=== PATIENT | male | born 2000 | race Caucasian/White ===

== ENCOUNTER 2023-05-04 17:18 | Emergency (ER) | payer BC, SELFPAY ==
[2023-05-04] VITALS (35 sets, daily range): BP systolic 132–163; BP diastolic 69–99; PULSE 65–95; RESP 10–24; TEMP 36.3; O2SAT 96–100
--- NOTE | 2023-05-04 17:34 | ED.GENADUL_ITS ---
Discharge Plan Disposition Patient Disposition: Home Condition: Stable Discharge Details Clinical Impression: Seizure disorder Primary Care Provider: [facility] ED Provider: Nghia Sage Home Meds and New Rx's Prescriptions: New diazepam [Diastat] 2.5 mg kit 5 mg ND Q6H PRN (Reason: epilepsy) Qty: 1 0RF Continued lamotrigine [Lamictal] 100 mg tablet 100 mg PO BID Discharge Instructions Instructions: Recurrent Seizures in Adults (ED) Additional Instructions: You were seen in the emergency department for your seizure activity, unwitnessed, he states that you are adherent to your Lamictal therapy and we have sent a level out. Please call back in the coming days to see if this lab has returned. Otherwise continue your Lamictal as directed by her neurologist. Did provide you 3 tablets of Ativan if you feel an aura of seizure coming on you may take 1 of these tablets, please present to hospital immediately. I discussed with you and your family in regards to having an emergency dose of Diastat in the home if you are ever found down in status epilepticus and this was sent to your pharmacy. Please try to get in touch with your neurologist about your breakthrough seizures and I will try to expedite your follow-up and getting your care transferred to [facility] neurology. Referrals: [facility] [Provider Group] Medical Decision Making This dictation utilizes [id number] dictation software and may contain unedited grammatical errors. 22 y/o M presents to ED today with a chief complaint of seizure activity in the setting of epilepsy and on Lamictal, adherent to therapy. Onset and characteristics include unknown duration seizures Tuesday & Tuesday, took one extra tablet lamictal after seizure activity at-home Tuesday, denies ETOH/drug use, endorses poor sleep habits. Patients' medical history: epilepsy, BPD. Family and social history: history of ETOH use, hospitalization [facility] 07/05 for etoh intox. Pertinent exam findings / vital signs include neuro intact, benign cardiopulmonary status, benign abdomen, question alcohol withdrawal monitor tongue fasciculations but this was an isolated finding. Differential / pathologies of concern include breakthrough seizures, epilepsy, withdrawal. Diagnostic studies of: -CBC, CMP, Lipase, UA, Utox, CK, Lamotrigine level (send-out) -No leukocytosis, CBC benign -CMP benign -trace blood in the urine -U tox negative -CK neg Interventions of: -IV Ativan 1mg, patient had not had seizure activity today- given one dose short-acting to prevent any seizure activity here in ED. ED Course: Patient with epilepsy who was either discontinued or self discontinued Keppra in the remote past has been having likely breakthrough seizures, states he is at home and his mom is at work he has these periods where he comes to sort of confused, states he was conscious the whole time but does not really remember what he was doing and likely was having seizures. States he has never been in status epilepticus before, I did securities counselor him on following up with his neurologist for restarting Keppra, I did refer the note to our neurology as they are trying to transfer care to our neurology service. Counseled patient on having a rescue dose of Diastat in the home, discussed this with the patient's mother and they wish to have this in the home in case the patient ever is found in status epilepticus. Findings not consistent with status epilepticus, current seizure activity, the patient likely had breakthrough seizures in the setting of epilepsy. Needs to follow-up outpatient, lamotrigine level is pending Disposition of Seizure Disorder. Patient verbalized understanding of the plan and return to ED criteria and engaged in shared decision making. Medical Records Medical records reviewed: Yes I reviewed the patient's medical records. Lab Data Labs: Laboratory Tests Range/Units 05/04/23 05/04/23 18:05 19:58 WBC (4.4-10.8) 10^3/uL 7.20 RBC (4.36-5.78) 10^6/uL 4.95 Hgb (13.5-17.5) g/dL 15.5 Hct (40.0-50.0) % 45.1 MCV (80-95) fL 91 MCH (27.0-33.0) pg 31.3 MCHC (32.0-36.0) % 34.4 RDW (11.8-14.1) % 12.9 Plt Count (130-400) 10^3/uL 254 MPV (8.0-11.0) fL 9.0 Immature Gran % 0.3 Neutrophils % 62.3 Lymphocytes % 22.9 Monocytes % 7.4 Eosinophils % 6.1 Basophils % 1.0 Nucleated RBC % (0.0-0.3) % 0.0 Absolute Neutrophils (1.2-6.7) 10^3/uL 4.49 Absolute Lymphocytes (1.2-3.4) 10^3/uL 1.65 Absolute Monocytes (0.1-0.8) 10^3/uL 0.53 Absolute Eosinophils (0.0-0.7) 10^3/uL 0.44 Absolute Basophils (0.0-0.2) 10^3/uL 0.07 Sodium (136-145) mmol/L 140 Potassium (3.5-5.1) mmol/L 4.2 Chloride (98-107) mmol/L 103 Carbon Dioxide (21.0-32.0) mmol/L 32.8 H Anion Gap (3-11) mmol/L 4.2 BUN (7-18) mg/dL 6 L Creatinine (0.70-1.30) mg/dL 1.1 Est GFR (CKD-EPI 2020) (mL/min/1.73m2) 97.95 Glucose (74-106) mg/dL 93 Calcium (8.5-10.1) mg/dL 9.9 Magnesium (1.8-2.4) mg/dL 2.1 Total Bilirubin (0.2-1.0) mg/dL 0.9 AST (15-37) U/L 19 ALT (16-63) U/L 33 Alkaline Phosphatase (46-116) U/L 64 Creatine Kinase (39-308) U/L 63 Total Protein (6.4-8.2) g/dL 7.5 Albumin (3.4-5.0) g/dL 4.3 Lipase (16-77) U/L 29 Urine Color (Yellow) Yellow Urine Clarity (Clear) Clear Urine pH (5-8) 7.5 Ur Specific [place] (1.005-1.025) 1.020 Urine Protein (Negative) mg/dL Negative Urine Ketones (Negative) mg/dL Negative Urine Blood (Negative) Trace-intact H Urine Nitrite (Negative) Negative Urine Bilirubin (Negative) Negative Urine Urobilinogen (Up to 0.2) mg/dL 0.2 Ur Leukocyte Esterase (Negative) Negative Urine RBC (0-2) HPF 0-2 Urine WBC (0-5) HPF Negative Ur Epithelial Cells (Negative) HPF Negative Urine Crystals (Negative) HPF Negative Urine Bacteria (Negative) HPF Rare Urine Casts (Negative) LPF Negative Urine Mucus (Negative) Negative Ur Culture Indicated? No Urine Glucose (Negative) mg/dL Negative Urine Opiates Screen (Negative) Negative Urine Methadone Screen (Negative) Negative Ur Barbiturates Screen (Negative) Negative Ur Tricyclics Screen (Negative) Negative Ur Amphetamines Screen (Negative) Negative U Benzodiazepines Scrn (Negative) Negative Urine Cocaine Screen (Negative) Negative Ur THC Screen (Negative) Negative Ethyl Alcohol (<10) mg/dL < 3.0 HPI General Date/Time Provider Initiated Documentation: 05/04/23 17:34 . HPI Narrative: 22 year-old male presents to ED today by POV/ambulating with his mother with a chief complaint of seizure activity, likely at home- was on the phone with a friend who said he was confused, has known epilepsy- sees Neuro at [facility], but his Neurologist is retiring from the practice with onset unknown today. Patient states he may have had a breakthrough seizure on Tuesday and Tuesday as well. Has history of Keppra use, but discontinued, currently on Lamictal- took a double dose last night after his seizure Tuesday. Quality descr ibed as unsure if he has partial or focal seizures, no radiation to fever, recent drug or alcohol use, denies recent illness, states he sometimes doesn't get the best sleep. Severity is described as 0/10 currently. Palliating factors include nothing specific. Provoking factors include nothing specific. Events leading up to the incident/Associated Symptoms: Patient is trying to transfer care to [facility] Neurology. Patient not anticoagulated. Related Data Home Medications Medication Instructions Recorded Confirmed diazepam 2.5 mg rectal kit 5 mg ND Q6H PRN epilepsy 2 doses 05/04/23 (Diastat) #1 ea lamotrigine 100 mg tablet 100 mg PO BID 05/04/23 05/04/23 (Lamictal) Previous Rx's Medication Instructions Recorded diazepam 2.5 mg rectal kit 5 mg ND Q6H PRN epilepsy 2 doses 05/04/23 (Diastat) #1 ea Allergies Allergy/AdvReac Type Severity Reaction Status Date / Time No Known Allergies Allergy Unverified 05/04/23 17:34 General Stated Complaint: Seizure LOBO: 3 Review of Systems All systems reviewed & are unremarkable except as noted in HPI and below PFSH All Active Problems (Updated 05/04/23 @ 20:41 by ABEL Huff) Seizure disorder (Chronic) Social History Smoking/Tobacco Use Status: Never Smoking risk assessment performed?: Yes Alcohol Intake: former Drug use: Never Substance use type: does not use Housing: apartment Do you feel safe at home: Yes Do you feel safe in your relationship?: Yes Exam Narrative Exam Narrative: GENERAL APPEARANCE: Well-nourished, non-toxic, awake and alert, atraumatic, no acute distress. SKIN: Warm, pink, dry, intact, without rashes/lesions/ulcerations. HEAD: Normocephalic, atraumatic, normal hair distribution for gender/age. EYES: Pupils PERRLA, EOMs intact without nystagmus, normal conjunctiva, no exudates on lids/lashes. ENT: Nares patent, no circumoral cyanosis, no facial swelling, minor tongue fasciculations NECK: Supple, trachea midline, painless cervical ROM. LUNGS/CHEST: Lungs CTA bilaterally- no rhonchi/rales/wheezes diffusely, non- labored respirations, normal A/P diameter, symmetrical expansion, no chest wall deformity HEART (CV/PV): Regular rate and rhythm without murmur, no peripheral edema, no JVD. ABDOMEN: Soft, non-distended, no guarding, no tenderness. MSK: Normal ROM, no swelling/deformity to bilateral UEs or LEs, moving all extremities without weakness, no cyanosis, spine midline without tenderness, normal curvature. NEURO: Mental Status AAOx4 - alert to person, place, time, events No facial droop, no forehead involvement, no pronator drift, no dysmetria with cerebellar testing Motor: No focal weakness - strength 5/5 in bilateral UEs and LEs, proximal and distal, symmetric. Sensory: sensation intact to light touch globally. Gait normal: patient ambulated without ataxia into ED room. PSYCH: euthymic, cooperative, pleasant, appropriate speech- flat affect Course Vital Signs Vital signs: Vital Signs Temperature 36.3 C L 05/04/23 17:25 Pulse 68 05/04/23 17:25 Respiratory Rate 16 05/04/23 17:25 Blood Pressure 161/99 H 05/04/23 17:25 Pulse Oximetry 99 05/04/23 17:25 Temperature 36.3 C L 05/04/23 17:25 Temperature Source Skin 11/22/23 17:25 Pulse 68 05/04/23 17:25 Respiratory Rate 16 05/04/23 17:25 Respiratory Effort Normal 05/04/23 17:28 Blood Pressure 161/99 H 05/04/23 17:25 Blood Pressure Position Sitting 05/04/23 17:25 Pulse Oximetry 99 05/04/23 17:25 Oxygen Delivery Method Room Air 05/04/23 17:25 Oxygen Flow Rate 0 05/04/23 17:25 Pain Level 4 05/04/23 17:25
--- OUTSIDE RECORDS SUMMARY | 2023-05-04 17:43 | XMS_ITS | Continuity of Care Document ---
Author Name Unknown Organization [facility] Address [address] [place] [address] Care Team Providers Care Battery Repairer Name Role Phone David York DO Primary Care Physician Encounter [facility] [id number] Date(s): 03/04/23 - 03/04/23 [facility] [address] [place] [address]- Encounter Diagnosis Globus sensation(Discharge Diagnosis) - 03/04/23 Crushing injury of larynx(Discharge Diagnosis) - 03/04/23 Change in voice(Discharge Diagnosis) - 03/04/23 Discharge Disposition: Home or Self Care Attending Physician: Patricia Hernandez PA-C Admitting Physician: Patricia Hernandez PA-C Allergies, Adverse Reactions, Alerts No Known Medication Allergies Substance Reaction Severity Status Nuts 1 Anaphylactic reaction Severe Active 1cashews and pistachios Assessment and Plan Future Appointments Future Scheduled Tests Radiology* MRI Shoulder w/o Contrast Right 08/09/22 Medications lamoTRIgine 100 mg oral tablet 100 mg = 1 tab, Oral, BID, Twice a day, # 60 tab, 1 Refill(s), [id number], 188, cm, 10/01/22 13:59:00 EDT, Height/Length Dosing, 75, kg, 10/01/22 13:59:00 EDT, Weight Dosing Start Date: 02/25/23 Stop Date: 04/26/23 Status: Ordered OLANZapine 5 mg oral tablet 5 mg = 1 tab, Oral, every night at bedtime, For Bipolar disorder, # 90 tab, 3 Refill(s), Pharmacy: [id number] Start Date: 08/25/22 Status: Ordered propranolol 60 mg oral capsule, extended release 60 mg = 1 cap, Oral, every night at bedtime, For Panic disorder/anxiety take at bedtime, # 90 cap, 3 Refill(s), Pharmacy: [id number] Start Date: 08/25/22 Status: Ordered traZODone 100 mg oral tablet 100 mg =, Oral, every night at bedtime, Take at bedtime for sleep and anxiety, # 90 tab, 3 Refill(s), Pharmacy: [id number] Start Date: 08/25/22 Status: Ordered Problem List Condition Confirmation Course Effective Dates Status Health Status Informant Allergy to food Confirmed Active Anxiety Confirmed Active Anxiety Confirmed Active Bipolar disorder Confirmed Active Bipolar affective disorder in remission Confirmed Active Cluster headache 1 Confirmed Active Complex partial seizure 2 Confirmed Active Counseling requested Confirmed Active Depression Confirmed Active EEG abnormal Confirmed Active Electroencephalogram abnormal Confirmed Active Gastritis Confirmed Active H/O: gastric ulcer Confirmed Active Insomnia Confirmed Active Instability of right shoulder joint Confirmed Active Panic disorder Confirmed Active Patellofemoral syndrome of left knee Confirmed Active Rectal bleeding Confirmed Active Seizure Confirmed Active Shoulder pain Confirmed Active 1associated with seizures 2as reported by pt per dr husain Procedures Procedure Date Related Diagnosis Body Site Status Arthroscopy Shoulder (Right) 1 10/07/22 Completed Surgery 2 Completed Surgery 3 Completed 1auto-populated from documented surgical case 2meniscus repair 3left shoulder surgery Vital Signs Most recent to oldest [Reference Range]: 1 Temperature Tympanic [36.6-37.9 Deg C] 3 6.4 Deg C *LOW* (03/04/23 5:27 PM) Peripheral Pulse Rate [60-100 bpm] 96 bp m (03/04/23 5:27 PM) Respiratory Rate [12-24 br/min] 16 br/mi n (03/04/23 5:27 PM) Blood Pressure [90-140/60-90 mmHg] 141/8 2mmHg *HI* (03/04/23 5:27 PM) Weight 70 kg (03/04/23 5:27 PM) Weight Measured (lbs) 154.323 lb (03/04/23 5:27 PM) Height 187 cm (03/04/23 5:27 PM) Height/Length Measured (inches) 73.62 in (03/04/23 5:27 PM) BSA Measured 1.91 m2 (03/04/23 5:27 PM) Body Mass Index 20.02 kg/m2 (03/04/23 5:27 PM) Social History Social History Type Response Tobacco Never tobacco user T obacco Use:. Sex Implantable Device List Procedure Provider Procedure Date Device Type Site Arthroscopy, shoulder, diagnostic, with or without synovial biopsy (separate procedure) Ortiz Brandt MD 10/07/22 Non Biological Should er R Device Identifier Serial Number Lot or Batch Number Manufacturing Date Expiration Date Distinct Identification Code MRI Safety Implantable Status Assigning Authority Unknown Unknown [id number] Unknown 04/11/25 Unknown Unknown Active Un known Unknown Unknown [id number] Unknown 05/15/24 Unknown Unknown Active Unkn own Physician Outpatient Note * Patricia Hernandez PA-C: PERFORM Event Display: Office Clinic Note Physician Authored Date: [id number] OMEGA MUSA :2000 Age:22 years Sex:Male Visit Date:03/04/2023 Primary Care Physician: David York DO Chief Complaint Pt reports 1 mo ago him and his brother were wrestling, c/o throat pain and a higher pitched voice since then. History of Present Illness Patient is a 22-year-old male who presents to the urgent care office today with 1 month history of??right-sided anterior neck pain, crepitus,??foreign body sensation, and change in voice??after his brother head??kneeled on his throat??while wrestling.?? Initially, he delayed being evaluated as he thought the symptoms would resolve on their own however??there has been no significant improvement.??No difficulty or painful swallowing??or breathing.?? No recent imaging. Physical Exam Vitals & Measurements T:??36.4?C ??(Tympanic)?? HR:??96??(Peripheral)?? RR:??16?? BP:??141/82?? SpO2:??100%?? HT:??187??cm?? WT:??70??kg?? BMI:??20.02?? BSA:??1.91?? Well-appearing, no acute distress, pleasant, reliable historian. No obvious injury of the head or neck. Trachea is midline. Minimal reproducible tenderness along right side larynx, without crepitus. Posterior pharynx is normal. Assessment/Plan 1.??Crushing injury of larynx??S17.0XXA Radiograph of??soft tissue neck was negative for any obvious fracture. I discussed risk benefits of outpatient CT??neck versus??ED evaluation.?? Patient elected for ED evaluation this evening. ??He was transferred in stable condition.?? Nonbillable visit. 2.??Globus sensation??R09.89 3.??Change in voice??R49.9 Problem List/Past Medical History Ongoing Allergy to food Anxiety Anxiety Bipolar affective disorder in remission Bipolar disorder Cluster headache Complex partial seizure Counseling requested Depression EEG abnormal Electroencephalogram abnormal Gastritis H/O: gastric ulcer Insomnia Instability of right shoulder joint Panic disorder Patellofemoral syndrome of left knee Rectal bleeding Seizure Shoulder pain Historical No qualifying data Procedure/Surgical History ???Arthroscopy Shoulder (Right) (10/07/2022)???Surgery???Surgery Medications lamoTRIgine 100 mg oral tablet, 100 mg= 1 tab, Oral, BID, 1 refills OLANZapine 5 mg oral tablet, 5 mg= 1 tab, Oral, every night at bedtime, 3 refills propranolol 60 mg oral capsule, extended release, 60 mg= 1 cap, Oral, every night at bedtime, 3 refills traZODone 100 mg oral tablet, 100 mg, Oral, every night at bedtime, 3 refills Allergies Nuts??(Anaphylactic reaction) No Known Medication Allergies Social History Alcohol Past Electronic Cigarette/Vaping Electronic Cigarette Use: Never. Substance Use Never Tobacco Never tobacco user Tobacco Use:. Electronically Signed on 03/04/23 07:48 PM Patricia Hernandez PA-C Patient Care team information Care Team Personnel Name: David York DO Position: Physician Member Role: Primary Care Physician Address: Address: [address] [place] [id number] [place] Care Team Related Persons Name: GRACE FAIR
--- OUTSIDE RECORDS SUMMARY | 2023-05-04 17:43 | XMS_ITS | Continuity of Care Document ---
Author Name Unknown Organization [facility] Address [address] [place] [address] Care Team Providers Care Interactive Media Designer Name Role Phone David York DO Primary Care Physician Encounter LTTL_CT FIN NBR [id number] Date(s): 03/04/23 - 03/04/[address] [id number] Encounter Diagnosis Odynophagia(Discharge Diagnosis) - 03/04/23 Discharge Disposition: Home or Self Care Attending Physician: Lino Jalloh MD Admitting Physician: Lino Jalloh MD Allergies, Adverse Reactions, Alerts No Known Medication Allergies Substance Reaction Severity Status Nuts 1 Anaphylactic reaction Severe Active 1cashews and pistachios Assessment and Plan Future Appointments Future Scheduled Tests Radiology* MRI Shoulder w/o Contrast Right 08/09/22 Functional Status 03/04/23 Other exposure to Infectious Disease Non e Medications lamoTRIgine 100 mg oral tablet 100 mg = 1 tab, Oral, BID, Twice a day, # 60 tab, 1 Refill(s), Pharmacy: [id number], 188, cm, 10/01/22 13:59:00 EDT, Height/Length Dosing, 75, kg, 10/01/22 13:59:00 EDT, Weight Dosing Start Date: 02/25/23 Stop Date: 04/26/23 Status: Ordered OLANZapine 5 mg oral tablet 5 mg = 1 tab, Oral, every night at bedtime, For Bipolar disorder, # 90 tab, 3 Refill(s), [id number] Start Date: 08/25/22 Status: Ordered propranolol 60 mg oral capsule, extended release 60 mg = 1 cap, Oral, every night at bedtime, For Panic disorder/anxiety take at bedtime, # 90 cap, 3 Refill(s), [id number] Start Date: 08/25/22 Status: Ordered traZODone 100 mg oral tablet 100 mg =, Oral, every night at bedtime, Take at bedtime for sleep and anxiety, # 90 tab, 3 Refill(s), [facility] Start Date: 08/25/22 Status: Ordered Mental Status 03/04/23 Eye Opening Response David Spontaneous ly Best Verbal Response David Oriented Best Motor Response David Obeys comman ds David Coma Score 15 Problem List Condition Confirmation Course Effective Dates [...] surgical case 2meniscus repair 3left shoulder surgery Results Radiology Reports * Exam Date Time Procedure Performing Provider Status 03/04/23 7:[address] Neck Soft Tissue w/o Contrast Shirlene Wallace; Auth (Verified) Notes: (CT Neck Soft Tissue w/o Contrast) Reason For Exam: throat pain after injury to neck CT Neck Soft Tissue w/o Contrast PROCEDURE INFORMATION: Exam: CT Neck Without Contrast Exam date and time: 03/04/2023 7:30 PM Age: 22 years old Clinical indication: Throat pain; Additional info: Throat pain after injury to neck TECHNIQUE: Imaging protocol: Computed tomography of the neck without contrast. Radiation optimization: All CT scans at this facility use at least one of these dose optimization techniques: automated exposure control; mA and/or kV adjustment per patient size (includes targeted exams where dose is matched to clinical indication); or iterative reconstruction. REPORTING DATA: Count of CT and Cardiac NM exams in prior 12 months: This patient has received 0 known CTs and 0 known cardiac nuclear medicine studies in the 12 months prior to the current study. COMPARISON: CR XR NECK SOFT TISSUE 03/04/2023 5:59 PM FINDINGS: Pharynx: Unremarkable. No significant tonsillar enlargement. Larynx: Unremarkable. Epiglottis is normal. Prevertebral and retropharyngeal spaces: Unremarkable. Salivary glands: Normal. Glands are normal in size. Thyroid: Normal. No enlarged or calcified nodules. Lymph nodes: Unremarkable. No lymphadenopathy. Trachea: Visualized trachea is unremarkable. Lungs: Unremarkable as visualized. Bones/joints: Unremarkable. No acute fracture. Soft tissues: Unremarkable. No significant soft tissue swelling. IMPRESSION: No acute findings. THIS DOCUMENT HAS BEEN ELECTRONICALLY SIGNED BY NICKOLAS ENGLISH MD on 03/04/2023 07:54 PM Final Signed by: Nickolas English MD Signed (Electronic Signature): 03/04/2023 7:54 pm Vital Signs Most recent to oldest [Reference Range]: 1 Temperature Temporal Artery [36-38 Deg C ] 36.4 Deg C (03/04/23 6:28 PM) Peripheral Pulse Rate [60-100 bpm] 78 bp m (03/04/23 6:28 PM) Respiratory Rate [12-24 br/min] 16 br/mi n (03/04/23 6:28 PM) Blood Pressure [90-140/60-90 mmHg] 136/9 3mmHg (03/04/23 6:28 PM) Weight 70.00 kg (03/04/23 6:28 PM) Weight Dosing 70.00 kg (03/04/23 6:43 PM) Height 187.000 cm (03/04/23 6:28 PM) Height/Length Dosing 187.000 cm (03/04/23 6:43 PM) Body Mass Index 20.000 kg/m2 (03/04/23 6:28 PM) Social History Social History Type Response [...] Safety Implantable Status Assigning Authority Unknown Unknown [id number] Unknown 04/11/25 Unknown Unknown Active Un known Unknown Unknown [id number] Unknown 05/15/24 Unknown Unknown Active [facility]kn own Hospital Discharge Instructions Patient Education 03/04/2023 19:13:08 Dysphagia Dysphagia Dysphagia is trouble swallowing. This condition occurs when solids and liquids stick in a person's throat on the way down to the stomach, or when food takes longer to get to the stomach than usual. You may have problems swallowing food, liquids, or both. You may also have pain while trying to swallow. It may take you more time and effort to swallow something. What are the causes? This condition may be caused by: ??? Muscle problems. These may make it difficult for you to move food and liquids through the esophagus, which is the tube that connects your mouth to your stomach. ??? Blockages. You may have ulcers, scar tissue, or inflammation that blocks the normal passage of food and liquids. Causes of these problems include: ??? Acid reflux from your stomach into your esophagus (gastroesophageal reflux). ??? Infections. ??? Radiation treatment for cancer. ??? Medicines taken without enough fluids to wash them down into your stomach. ??? Stroke. This can affect the nerves and make it difficult to swallow. ??? Nerve problems. These prevent signals from being sent to the muscles of your esophagus to squeeze (contract) and move what you swallow down to your stomach. ??? Globus pharyngeus. This is a common problem that involves a feeling like something is stuck in your throat or a sense of trouble with swallowing, even though nothing is wrong with the swallowing passages. ??? Certain conditions, such as cerebral palsy or Parkinson's disease. What are the signs or symptoms? Common symptoms of this condition include: ??? A feeling that solids or liquids are stuck in your throat on the way down to the stomach. ??? Pain while swallowing. ??? Coughing or gagging while trying to swallow. Other symptoms include: ??? Food moving back from your stomach to your mouth (regurgitation). ??? Noises coming from your throat. ??? Chest discomfort when swallowing. ??? A feeling of fullness when swallowing. ??? Drooling, especially when the throat is blocked. ??? Heartburn. How is this diagnosed? This condition may be diagnosed by: ??? Barium swallow X-ray. In this test, you will swallow a white liquid that sticks to the inside of your esophagus. X-ray images are then taken. ??? Endoscopy. In this test, a flexible telescope is inserted down your throat to look at your esophagus and your stomach. ??? CT scans or an MRI. How is this treated? Treatment for dysphagia depends on the cause of this condition: ??? If the dysphagia is caused by acid reflux or infection, medicines may be used. These may include antibiotics or heartburn medicines. ??? If the dysphagia is caused by problems with the muscles, swallowing therapy may be used to helpyou strengthen your swallowing muscles. You may have to do specific exercises to strengthen the muscles or stretch them. ??? If the dysphagia is caused by a blockage or mass, procedures to remove the blockage may be done. You may need surgery and a feeding tube. You may need to make diet changes. Ask your health care provider for specific instructions. Follow these instructions at home: Medicines ??? Take icuc-ngs-[id number] and prescription medicines only as told by your health care provider. ??? If you were prescribed an antibiotic medicine, take it as told by your health care provider. Donot stop taking the antibiotic even if you start to feel better. Eating and drinking ??? Make any diet changes as told by your health care provider. ??? Work with a diet and child nutrition assistant (dietitian) to create an eating plan that will help you get the nutrients you need in order to stay healthy. ??? Eat soft foods that are easier to swallow. ??? Cut your food into small pieces and eat slowly. Take small bites. ??? Eat and drink only when you are sitting upright. ??? Do not drink alcohol or caffeine. If you need help quitting, ask your health care provider. General instructions ??? Check your weight every day to make sure you are not losing weight. ??? Do not use any products that contain nicotine or tobacco. These products include cigarettes, chewing tobacco, and vaping devices, such as e-cigarettes. If you need help quitting, ask your health care provider. ??? Keep all follow-up visits. This is important. Contact a health care provider if: ??? You lose weight because you cannot swallow. ??? You cough when you drink liquids. ??? You cough up partially digested food. Get help right away if: ??? You cannot swallow your saliva. ??? You have shortness of breath, a fever, or both. ??? Your voice is hoarse and you have trouble swallowing. These symptoms may represent a serious problem that is an emergency. Do not wait to see if the symptoms will go away. Get medical help right away. Call your local emergency services (911 in the [place] Do not drive yourself to the hospital. Summary ??? Dysphagia is trouble swallowing. This condition occurs when solids and liquids stick in a person's throat on the way down to the stomach. You may cough or gag while trying to swallow. ??? Dysphagia has many possible causes. ??? Treatment for dysphagia depends on the cause of the condition. ??? Keep all follow-up visits. This is important. This information is not intended to replace advice given to you by your health care provider. Make sure you discuss any questions you have with your health care provider. Document Revised: 01/17/2021 Document Reviewed: 01/17/2021 [employer] Patient Education ?? 2022 [employer]. Follow Up Care 03/04/2023 18:28:31 With:Follow up with specialist Address:Unknown When:1 month Physician Emergency department Note * ABEL Brown: PERFORM Event Display: ED Note Physician Authored Date: [id number] OMEGA MUSA :2000 Age:22 years Sex:Male Visit Date:03/04/2023 Primary Care Physician: David York DO Basic Information Time Seen: ABEL Brown / 03/04/2023 18:31 Chief Complaint Reports painful swallowing since injury to throat 1 month ago - knee to throat. [facility]. Sent to ED for CT scan. Denies any SOB. History Of Present Illness: Patient is otherwise healthy 22-year-old male here for concern of??pain in the anterior aspect of his throat??for the past month. ??Explains that he was in a wrestling match and a another player knelt on??the throat. ??After this??he began to experience this pain??and is having a strange sensation when he swallows. ??He is able to swallow fluids and foods.?? He has had no??history of dyspnea since this event. Review of Systems: See HPI Physical Exam Vitals & Measurements T:??36.4?C ??(Temporal Artery)?? HR:??78??(Peripheral)?? RR:??16?? BP:??136/93?? SpO2:??100%?? HT:??187.000??cm?? WT:??70.00??kg?? BMI:??20.000?? O2 Therapy:??Room air?? General: Patient is alert and engaging, appears well. Is in no acute distress. Speaking comfortablyin full sentences.?? Constitutional: No fevers, chills or diaphoresis.?? HEENT: Head normocephalic and atraumatic. Neck supple with FROM w/o lymphadenopathy or JVD. Tracheamidline. No c-spine tenderness. Pupils equal and reactive to light. .?? Respiratory: ??No obvious work of breathing, regular rate. BS equal b/l, clear to auscultation. Cardiovascular: Heart regular rate and rhythm w/o murmurs, rubs or gallops. No peripheral edema present.?? Extremities: No obvious deformities. FROM.?? Integumentary: Skin warm and pink. No rashes or ecchymosis present.?? Neuro: CN III-XII grossly intact.?? Psychiatric: acting appropriate for age and circumstance. Normal mood without obvious ??affect.?? Medical Decision Making: Patient is a pleasant 22-year-old male??here for??pain in the anterior aspect of the throat.?? Examis fairly on telling. ??He is in no??acute respiratory distress. ??Is not presenting in the sniffing position, is managing his own secretions, no stridor or stridor. ??Vitals obtained??and reviewed. Obtained a??soft tissue CT which did not reveal any??acute abnormalities. Discussed the option of ENT referral with patient and he is agreeable to this. ??Referral was placed. Procedure No Qualifying Data Assessment/Plan Odynophagia??R13.10 Patient discharged home. ??Referral to ENT sent. ??Will return to the ED with any??dysphagia or dyspnea. Orders: Discharge Patient, 03/04/23 20:12:00 EDT Patient Education Dysphagia Follow Up With When Contact Information Follow up with specialist Within 1 month Additional Instructions: Medication Reconciliation Unchanged lamoTRIgine (lamoTRIgine 100 mg oral tablet)1 tab Oral (given by mouth) 2 times a day for 30 Days. Twice a day. Refills: 1. ?? OLANZapine (OLANZapine 5 mg oral tablet)1 tab Oral (given by mouth) every night at bedtime. For Bipolar disorder. Refills: 3. ?? propranolol (propranolol 60 mg oral capsule, extended release)1 Capsules Oral (given by mouth) every night at bedtime. For Panic disorder/anxiety take at bedtime. Refills: 3. ?? traZODone (traZODone 100 mg oral tablet)100 Milligrams Oral (given by mouth) every night at bedtime. Take at bedtime for sleep and anxiety. Refills: 3. Problem List/Past Medical History Ongoing Allergy to food Anxiety Anxiety Bipolar affective disorder in remission Bipolar disorder Cluster headache Complex partial seizure Counseling requested Depression EEG abnormal Electroencephalogram abnormal Gastritis H/O: gastric ulcer Insomnia Instability of right shoulder joint Panic disorder Patellofemoral syndrome of left knee Rectal bleeding Seizure Shoulder pain Historical No qualifying data Procedure/Surgical History ???Arthroscopy Shoulder (Right) (10/07/2022)???Surgery???Surgery Allergies Nuts??(Anaphylactic reaction) No Known Medication Allergies Social History Alcohol Past Electronic Cigarette/Vaping Electronic Cigarette Use: Never. Substance Use Never Tobacco Never tobacco user Tobacco Use:. Referral Orders Referral Management, Medical Service: ENT, Reason: throat pain after injury to neck 1 month ago,Start: 03/04/[address] Neck Soft Tissue w/o Contrast 03/04/2023 19:[address] Neck Soft Tissue w/o Contrast ?? 03/04/23 19:30:15 PROCEDURE INFORMATION: Exam: CT Neck Without Contrast Exam date and time: 03/04/2023 7:30 PM Age: 22 years old Clinical indication: Throat pain; Additional info: Throat pain after injury to neck ?? TECHNIQUE: Imaging protocol: Computed tomography of the neck without contrast. Radiation optimization: All CT scans at this facility use at least one of these dose optimization techniques: automated exposure control; mA and/or kV adjustment per patient size (includes targeted exams where dose is matched to clinical indication); or iterative reconstruction. ?? REPORTING DATA: Count of CT and Cardiac NM exams in prior 12 months: This patient has received 0 known CTs and 0 known cardiac nuclear medicine studies in the 12 months prior to the current study. ?? COMPARISON: CR XR NECK SOFT TISSUE 03/04/2023 5:59 PM ?? FINDINGS: Pharynx: Unremarkable. No significant tonsillar enlargement. Larynx: Unremarkable. Epiglottis is normal. Prevertebral and retropharyngeal spaces: Unremarkable. Salivary glands: Normal. Glands are normal in size. Thyroid: Normal. No enlarged or calcified nodules. Lymph nodes: Unremarkable. No lymphadenopathy. ?? Trachea: Visualized trachea is unremarkable. Lungs: Unremarkable as visualized. Bones/joints: Unremarkable. No acute fracture. Soft tissues: Unremarkable. No significant soft tissue swelling. ?? IMPRESSION: No acute findings. ? THIS DOCUMENT HAS BEEN ELECTRONICALLY SIGNED BY NICKOLAS ENGLISH MD on 03/04/2023 07:54 PM ?? Signed By: Nickolas English MD Electronically Signed on 03/04/23 09:14 PM ABEL Brown Emergency department Discharge instructions * ABEL Brown: PERFORM Event Display: ED Discharge Information Authored Date: [id number] OMEGA MUSA :2000 Age:22 years Sex:Male Visit Date:03/04/2023 Primary Care Physician: David York DO Discharge Instructions We would like to thank you for allowing us to assist you with your healthcare needs. The following includes patient education materials and information regarding your injury/illness. Diagnosis from Today's Visit Odynophagia Discharge Vitals Temperature??(Temporal Artery) 97.5 ??F (36.4 ??C) Heart Rate??(Peripheral) 78 Respiratory Rate?? 16 Blood Pressure?? 136/93?? Height?? 73.62 in (187.000 cm) Weight?? 154.35 lb (70.00 kg) BMI?? 20.000 Allergies Nuts??(Anaphylactic reaction) No Known Medication Allergies What to Do Next Instructions from Your Care Team I have sent in a referral to ENT. ??Please keep appointment as scheduled.?? Please return to the emergency department if you begin to experience any difficulty swallowing or increased pain. You Need to Schedule the Following Appointments Follow Up with??Follow up with specialist When:??Within 1 month Upcoming Scheduled Appointments Tuesday 8:00 AM EDT ?? With: Shruti Hassan MD Where: [facility] Neurology Status: Confirmed You were treated today on an emergency basis; it may be perdomo to contact your primary care provider to notify them of your visit today. You may have been referred to your regular doctor or a specialist, please follow up as instructed. If your condition worsens or you can't get in to see the doctor, contact the Emergency Department. Medications What How Much When Instructions Next Dose Unchanged lamoTRIgine (lamoTRIgine 100 mg oral tablet) 1 tab Oral (given by mouth) 2 times a day Duration: 30 Days Twice a day ?? Unchanged OLANZapine (OLANZapine 5 mg oral tablet) 1 tab Oral (given by mouth) Every night at bedtime For Bipolar disorder ?? Unchanged propranolol (propranolol 60 mg oral capsule, extended release) 1 Capsules Oral (given by mouth) Every night at bedtime For Panic disorder/ anxiety take at bedtime ?? Unchanged traZODone (traZODone 100 mg oral tablet) 100 Milligrams Oral (given by mouth) Every night at bedtime Take at bedtime for sleep and anxiety ?? [employer] Dysphagia Dysphagia is trouble swallowing. This condition occurs when solids and liquids stick in a person's throat on the way down to the stomach, or when food takes longer to get to the stomach than usual. You may have problems swallowing food, liquids, or both. You may also have pain while trying to swallow. It may take you more time and effort to swallow something. What are the causes? This condition may be caused by: ? Muscle problems. These may make it difficult for you to move food and liquids through the esophagus, which is the tube that connects your mouth to your stomach. ? Blockages. You may have ulcers, scar tissue, or inflammation that blocks the normal passage of foodand liquids. Causes of these problems include: ? Acid reflux from your stomach into your esophagus (gastroesophageal reflux). ? Infections. ? Radiation treatment for cancer. ? Medicines taken without enough fluids to wash them down into your stomach. ? Stroke. This can affect the nerves and make it difficult to swallow. ? Nerve problems. These prevent signals from being sent to the muscles of your esophagus to squeeze (contract) and move what you swallow down to your stomach. ? Globus pharyngeus. This is a common problem that involves a feeling like something is stuck in yourthroat or a sense of trouble with swallowing, even though nothing is wrong with the swallowing passages. ? Certain conditions, such as cerebral palsy or Parkinson's disease. What are the signs or symptoms? Common symptoms of this condition include: ? A feeling that solids or liquids are stuck in your throat on the way down to the stomach. ? Pain while swallowing. ? Coughing or gagging while trying to swallow. Other symptoms include: ? Food moving back from your stomach to your mouth (regurgitation). ? Noises coming from your throat. ? Chest discomfort when swallowing. ? A feeling of fullness when swallowing. ? Drooling, especially when the throat is blocked. ? Heartburn. How is this diagnosed? This condition may be diagnosed by: ? Barium swallow X-ray. In this test, you will swallow a white liquid that sticks to the inside of your esophagus. X-ray images are then taken. ? Endoscopy. In this test, a flexible telescope is inserted down your throat to look at your esophagus and your stomach. ? CT scans or an MRI. How is this treated? Treatment for dysphagia depends on the cause of this condition: ? If the dysphagia is caused by acid reflux or infection, medicines may be used. These may include antibiotics or heartburn medicines. ? If the dysphagia is caused by problems with the muscles, swallowing therapy may be used to help youstrengthen your swallowing muscles. You may have to do specific exercises to strengthen the musclesor stretch them. ? If the dysphagia is caused by a blockage or mass, procedures to remove the blockage may be done. You may need surgery and a feeding tube. You may need to make diet changes. Ask your health care provider for specific instructions. Follow these instructions at home: Medicines ? Take oxuf-zqu-rudcqcj and prescription medicines only as told by your health care provider. ? If you were prescribed an antibiotic medicine, take it as told by your health care provider. Do notstop taking the antibiotic even if you start to feel better. Eating and drinking ? Make any diet changes as told by your health care provider. ? Work with a diet and child nutrition assistant (dietitian) to create an eating plan that will help you get the nutrients you need in order to stay healthy. ? Eat soft foods that are easier to swallow. ? Cut your food into small pieces and eat slowly. Take small bites. ? Eat and drink only when you are sitting upright. ? Do not drink alcohol or caffeine. If you need help quitting, ask your health care provider. General instructions ? Check your weight every day to make sure you are not losing weight. ? Do not use any products that contain nicotine or tobacco. These products include cigarettes, chewing tobacco, and vaping devices, such as e-cigarettes. If you need help quitting, ask your health careprovider. ? Keep all follow-up visits. This is important. Contact a health care provider if: ? You lose weight because you cannot swallow. ? You cough when you drink liquids. ? You cough up partially digested food. Get help right away if: ? You cannot swallow your saliva. ? You have shortness of breath, a fever, or both. ? Your voice is hoarse and you have trouble swallowing. These symptoms may represent a serious problem that is an emergency. Do not wait to see if the symptoms will go away. Get medical help right away. Call your local emergency services (911 in the [place] Do not drive yourself to the hospital. Summary ? Dysphagia is trouble swallowing. This condition occurs when solids and liquids stick in a person's throat on the way down to the stomach. You may cough or gag while trying to swallow. ? Dysphagia has many possible causes. ? Treatment for dysphagia depends on the cause of the condition. ? Keep all follow-up visits. This is important. This information is not intended to replace advice given to you by your health care provider. Make sure you discuss any questions you have with your health care provider. Document Revised: 01/17/2021 Document Reviewed: 01/17/2021 [employer] Patient Education ?? 2022 [employer] Tests Performed Radiology CT Neck Soft Tissue w/o Contrast 03/04/2023 19:54 EDT Patient/Home Planning Consultant Salesperson Signature Patient Name:OMEGA MUSA I have received this information and my questions have been answered. Patient/Home Planning Consultant Salesperson Name: Patient/Home Planning Consultant Salesperson Signature: Relationship to Patient: Witness Name/Signature: Date: Electronically Signed on: 03/04/2023 20:14 EDTSigned by:DENIZ Patient Care team information Care Team Personnel Name: David York DO Position: Physician Member Role: Primary Care Physician Address: Address: [address] [place] [id number] Name: Soraida Tenorio Position: Nurse Member Role: Registered Nurse Name: ABEL Brown Position: Physician Member Role: Physician Address: Address: [address] [place] [id number] Name: Harshad Zuniga Position: Nurse Member Role: ED Nurse Care Team Related Persons Name: GRACE FAIR
--- OUTSIDE RECORDS SUMMARY | 2023-05-04 17:43 | XMS_ITS | Continuity of Care Document ---
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 Role Phone Stephanie Rosales Primary Care Physician Encounter [facility] FIN NBR [id number] Date(s): 08/27/22 - 08/27/22 [facility] [address] [place] [address]- [place] Encounter Diagnosis Bipolar disorder(Discharge Diagnosis) - 08/27/22 Discharge Disposition: Home or Self Care Allergies, Adverse Reactions, Alerts Substance Reaction Severity Status Nuts Unknown Active Assessment and Plan Future Appointments Future Scheduled Tests Radiology* MRI Shoulder w/o Contrast Right 08/09/22 Functional Status 08/27/22 Other exposure to Infectious Disease Non e Medications Benadryl 25 mg oral capsule 25 mg = 1 cap, Oral, every 6 hr, PRN as needed for itching, # 24 cap, 0 Refill(s) Start Date: 08/13/22 Status: Ordered lamoTRIgine 100 mg oral tablet 60 EA, TAKE 1 TABLET BY MOUTH TWICE DAILY, 0 Refill(s) Start Date: 06/01/22 Status: Ordered lamoTRIgine 25 mg oral tablet 120 EA, TAKE 1 TABLET BY MOUTH ONCE DAILY FOR 7 DAYS THEN 1 TABLET TWICE A DAY FOR 1 WEEK THEN 1 TABLET 3 TIMES DAY FOR 1 WEEK THEN 2 TABLETS TWICE A DAY THEREAFTER ALONG WITH 100MG TABLET, 0 Refill(s) Start Date: 06/01/22 Status: Ordered OLANZapine 2.5 mg oral tablet 30 EA, TAKE 1 TABLET BY MOUTH ONCE DAILY, 0 Refill(s) Start Date: 06/01/22 Status: Ordered OLANZapine 5 mg oral tablet 5 mg = 1 tab, Oral, every night at bedtime, For Bipolar disorder, # 90 tab, 3 Refill(s), Pharmacy: [id number] Start Date: 08/25/22 Status: Ordered propranolol 60 mg oral capsule, extended release 60 mg = 1 cap, Oral, Daily, For Panic disorder/anxiety take at bedtime, # 90 cap, 3 Refill(s), Pharmacy: [id number] Start Date: 08/25/22 Status: Ordered traZODone 100 mg oral tablet 100 mg =, Oral, every night at bedtime, Take at bedtime for sleep and anxiety, # 90 tab, 3 Refill(s), Pharmacy: [id number] Start Date: 08/25/22 Status: Ordered Problem List Condition Confirmation Course Effective Dates Status Health Status Informant Anxiety Confirmed Active Anxiety Confirmed Active Bipolar disorder Confirmed Active Bipolar affective disorder in remission Confirmed Active Cellulitis Confirmed Active Depression Confirmed Active EEG abnormal Confirmed Active Electroencephalogram abnormal Confirmed Active Gastritis Confirmed Active Insomnia Confirmed Active Insomnia Confirmed Active Instability of right shoulder joint Confirmed Active Panic disorder Confirmed Active Panic disorder Confirmed Active Person encountering health services to consult on behalf of another person Confirmed Active Rectal bleeding Confirmed Active Seizure Confirmed Active Seizure Confirmed Active Procedures Procedure Date Related Diagnosis Body Site Status Surgery 1 Completed Surgery 2 Completed 1meniscus repair 2left shoulder surgery Vital Signs Most recent to oldest [Reference Range]: 1 Peripheral Pulse Rate [60-100 bpm] 83 bp m (08/27/22 1:38 PM) Blood Pressure [90-140/60-90 mmHg] 128/8 6mmHg (08/27/22 1:38 PM) Weight 74.75 kg (08/27/22 1:38 PM) Weight Measured (lbs) 164.795 lb (08/27/22 1:38 PM) [place] Body Weight Calculated 77.183 kg (08/27/22 1:38 PM) Height 182.42 cm (08/27/22 1:38 PM) Height/Length Measured (inches) 71.82 in ch (08/27/22 1:38 PM) BSA Measured 1.95 m2 (08/27/22 1:38 PM) Body Mass Index 22.46 kg/m2 (08/27/22 1:38 PM) Social History Social History Type Response Tobacco Never tobacco user T obacco Use:. Sex Physician Outpatient Note * Quin Johns MD: PERFORM Event Display: Office Clinic Note Physician Authored Date: [id number] OMEGA MUSA :2000 Age:22 years Sex:Male Visit Date:08/27/2022 Primary Care Physician: Stephanie Rosales APRN Chief Complaint I am feeling much better now with the medication adjustments, much calmer. History of Present Illness MrJoaquín??Aure Cerda??is a??22 year old White male who is here??for a follow up.?? He was seen here??08/25/22?? for worsening Bipolar disorder, insomnia, and worsening anxiety. He was increasingly depressed, having??SI, but no plans for suicide.?? We adjusted his psych medications.?? Olanzapine was increased to 5mg QHS, he was started on Propranol XR 60mg QHS?? (this helped him before with anxiety), and??Trazodone 100mg QHS was added for sleep and anxiety. He is here to let us know how he is doing before he returns to school at??[employer] next Tuesday. He??says he is feeling much more relaxed and feels ready to back UV. ?? Review of Systems Constitutional: He denies fever, chills, fatigue or unusual weight loss. Cardiovascular: ??He denies chest pain, palpitations or syncopal episodes.?? Respiratory: ??No dyspnea, no cough productive of phlegm, no orthopnea or hemoptysis. Gastrointestinal: ??No nausea, vomiting, diarrhea, or abdominal pain. No blood in his stool. Urologic: ??No urgency, dysuria, blood in his urine, or kidney stones. Musculoskeletal: ??No muscle weakness. Neurological: No IBARRA, confusion, or dizziness; no numbness or tingling; no difficulty speaking or swallowing. ? Physical Exam Vitals & Measurements HR:??83??(Peripheral)?? BP:??128/86?? SpO2:??98%?? HT:??182.42??cm?? WT:??74.75??kg?? BMI:??22.46?? BSA:??1.95?? General: Comfortable, showing no signs of acute distress. HEENT: PERRL, EOMI, Anicteric, No arcus senilis. OP clear, No facial asymmetry. Neck: Supple. No JVD. No carotid bruits. No cervical, submandibular or supraclavicular lymphadenopathy.?? No thyromegaly. Lungs: Clear. No wheezes, no rales, no rhonchi. Heart: Regular. No Murmurs, rubs or gallops. Chest: No use of accessory muscles in breathing.?? Abdomen: Soft, Nontender. Bowel sounds present. No scars. Back: No CVAT. No kyphosis. No scoliosis. Extremities: No pretibial/ankle edema. Palpable DP pulses BL. FROM. Skin: No rashes or bruises. Warm and dry. No jaundice. 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 Good strength BL U/L extremities. Ambulates w/o assist. No focal motoror?? sensory deficits. Psych: A&Ox3. Mood and affect appropriate. No unusual anxiety or evidence of depression. ? Assessment/Plan Bipolar disorder??F31.9 1.. Bipolar disorder Continue Olanzapine 5mg QHS ?? 3. Panic disorder/Anxiety Continue Propranolol XR 60mg QHS? 3. Insomnia Continue??Trazodone 50 to??100mg QHS Referral Orders Referral Management, Medical Service: Mental Health, Outpatient, Reason: Bipolar, anxiety, insomnia, Start: 08/27/22, Instructions: STUDENT at [employer] and he's returning to school TuesdayAugust 30, Please refer to Psychiatrist at [employer] [employer] in [place], [place] Problem List/Past Medical History Ongoing Anxiety Anxiety Bipolar affective disorder in remission Bipolar disorder Cellulitis Depression EEG abnormal Electroencephalogram abnormal Gastritis Insomnia Insomnia Instability of right shoulder joint Panic disorder Panic disorder Person encountering health services to consult on behalf of another person Rectal bleeding Seizure Seizure Historical No qualifying data Procedure/Surgical History ???Surgery???Surgery Medications Benadryl 25 mg oral capsule, 25 mg= 1 cap, Oral, every 6 hr, PRN lamoTRIgine 100 mg oral tablet lamoTRIgine 25 mg oral tablet OLANZapine 2.5 mg oral tablet OLANZapine 5 mg oral tablet, 5 mg= 1 tab, Oral, every night at bedtime, 3 refills propranolol 60 mg oral capsule, extended release, 60 mg= 1 cap, Oral, Daily, 3 refills traZODone 100 mg oral tablet, 100 mg, Oral, every night at bedtime, 3 refills Allergies Nuts Social History Alcohol Current Electronic Cigarette/Vaping Electronic Cigarette Use: Never. Tobacco Never tobacco user Tobacco Use:. Electronically Signed on 08/27/22 02:38 PM Quin Johns MD Patient Care team information Care Team Personnel Name: Stephanie Rosales APRN Position: Physician Member Role: Primary Care Physician Address: Address: [address] [place] [address]- Care Team Related Persons Name: GRACE FAIR
--- OUTSIDE RECORDS SUMMARY | 2023-05-04 17:43 | XMS_ITS | Continuity of Care Document ---
Author Name Unknown Organization [facility] Address [address] [place] [address] Care Team Providers Care Coding Team Lead Name Role Phone Stephanie Rosales Primary Care Physician Encounter [facility] FIN NBR [id number] Date(s): 10/07/22 - 10/07/22 [facility] [address] [place] [address]- [place] Discharge Disposition: Home f/u Internal Provider Attending Physician: Ortiz Brandt MD Admitting Physician: Ortiz Brandt MD Referring Physician: Stephanie Rosales APRN Allergies, Adverse Reactions, Alerts Substance Reaction Severity Status Nuts 1 Anaphylactic reaction Severe Active 1cashews and pistachios Assessment and Plan Future Appointments Future Scheduled Tests Radiology* MRI Shoulder w/o Contrast Right 08/09/22 Functional Status 10/07/22 ADLs Independent Antiembolism Device Intermittent pneumat ic compression devices, knee high, bilat Family Member Travel History No recent t ravel Recent Travel History No recent travel Other exposure to Infectious Disease Non e Medications !-[place] 5 mg-325 mg oral tablet 1 tab, Oral, every 6 hr, PRN as needed for pain, # 9 tab, 0 Refill(s), Pharmacy: [facility], 188, cm, 10/01/22 13:59:00 EDT, Height/Length Dosing, 75, kg, 10/01/22 13:59:00 EDT, Weight Dosing Start Date: 10/07/22 Status: Ordered Benadryl 25 mg oral capsule 25 mg [...] disorder, # 90 tab, 3 Refill(s), Pharmacy: [facility] Start Date: 08/25/22 Status: Ordered propranolol 60 mg oral capsule, extended release 60 mg = 1 cap, Oral, every night at bedtime, For Panic disorder/anxiety take at bedtime, # 90 cap, 3 Refill(s), Pharmacy: [facility] 268 Start Date: 08/25/22 Status: Ordered traZODone 100 mg oral tablet 100 mg =, Oral, every night at bedtime, Take at bedtime for sleep and anxiety, # 90 tab, 3 Refill(s), Pharmacy: [facility] Start Date: 08/25/22 Status: Ordered Problem List Condition Confirmation Course Effective Dates Status Health Status Informant Anxiety Confirmed Active Anxiety Confirmed Active Bipolar disorder Confirmed Active Bipolar affective disorder in remission Confirmed Active Cluster headache 1 Confirmed Active Complex partial seizure 2 Confirmed Active Depression Confirmed Active EEG abnormal Confirmed Active Electroencephalogram abnormal Confirmed Active Gastritis Confirmed Active H/O: gastric ulcer Confirmed Active Insomnia Confirmed Active Insomnia Confirmed Active Instability of right shoulder joint Confirmed Active Panic disorder Confirmed Active Panic disorder Confirmed Active Person encountering health services to consult on behalf of another person Confirmed Active Rectal bleeding Confirmed Active Seizure Confirmed Active Seizure Confirmed Active 1associated with seizures 2as reported by pt per dr husain Procedures Procedure Date Related Diagnosis Body Site Status Arthroscopy Shoulder (Right) 1 10/07/22 Completed Surgery 2 Completed Surgery 3 Completed 1auto-populated from documented surgical case 2meniscus repair 3left shoulder surgery Vital Signs Most recent to oldest [Reference Range]: 1 2 3 Temperature Temporal Artery [36-38 Deg C] 36.2 Deg C (10/07/22 10:30 AM) 36.0 Deg C (10/07/22 9:37 AM) 36.5 Deg C (10/07/22 6:49 AM) Temperature Temporal Artery (DegF) [97.3-100 Deg F] 97.16 Deg F *LOW* (10/07/22 10:30 AM) 96.8 Deg F *LOW* (10/07/22 9:37 AM) Peripheral Pulse Rate [60-100 bpm] 65 bpm (10/07/22 10:15 AM) 73 bpm (10/07/22 10:00 AM) 71 bpm (10/07/22 9:52 AM) Respiratory Rate [12-24 br/min] 16 br/min (10/07/22 6:49 AM) Blood Pressure [90-140/60-90 mmHg] 112/85mmHg (10/07/22 10:15 AM) 145/82mmHg *HI* (10/07/22 10:00 AM) 120/82mmHg (10/07/22 9:52 AM) Mean Arterial Pressure, Cuff [65-140 mmHg] 94 mmHg (10/07/22 10:15 AM) 103 mmHg (10/07/22 10:00 AM) 95 mmHg (10/07/22 9:52 AM) Mean Arterial Pressure Cuff 93 mmHg (10/07/22 10:15 AM) 98 mmHg (10/07/22 10:00 AM) 94 mmHg (10/07/22 9:52 AM) Weight 75.000 kg (10/01/22 1:52 PM) Weight Dosing 75.000 kg (10/01/22 1:52 PM) Height 188.000 cm (10/01/22 1:52 PM) Height/Length Dosing 188.000 cm (10/01/22 1:52 PM) Social History Social History Type Response [...] Safety Implantable Status Assigning Authority Unknown Unknown [id number] Unknown 04/11/25 Unknown Unknown Active Un known Unknown Unknown [id number] Unknown 05/15/24 Unknown Unknown Active Unkn own Procedure note * Maximus Gray: PERFORM Event Display: Procedure Note Authored Date: [id number] 10/07/2022 08:14:03 Surgical Procedure: ??Rt shoulder AA Indication: Surgeon requested for post-op pain management ??[facility] of service: [facility] TIME OUT: Block type: Interscalene Side: Right Patient position: Semi-flowlers Pre-medication: Midazolam Level of sedation: Awake Monitors: Pulse oximetery Oxygen: _ Prep done using chloroprep, sterile drapes and sterile gloves Injection made keeping needle tip and spread of anesthetic in ultrasound view using 22g 50mm??needle.?? Needle depth of _2__ cm Negative aspirate q5 mL. No heme. No parethsesia. Local anesthetic: Ropivicaine0.5% 28ml Adjuncts: _ Electronically Signed on 10/07/22 08:14 AM Maximus Gray Patient Care team information Care Team Personnel Name: Stephanie Rosales APRN Position: Physician Member Role: Primary Care Physician Address: Address: [address] [place] [address] [address] [place] [address]- Care Team Related Persons Name: GRACE FAIR Address: Home
--- OUTSIDE RECORDS SUMMARY | 2023-05-04 17:43 | XMS_ITS | Continuity of Care Document ---
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 Name Role Phone Bobby Stephanie Primary Care Physician Encounter [facility] FIN NBR [id number] Date(s): 11/19/22 - 11/19/22 [facility] [address] [place], [place] [address] Discharge Disposition: Home Allergies, Adverse Reactions, Alerts No Known Medication Allergies Substance Reaction Severity Status Nuts 1 Anaphylactic reaction Severe Active 1cashews and pistachios Assessment and Plan Future Scheduled Tests Radiology* MRI Shoulder w/o Contrast Right 08/09/22 Medications !-[place] 5 mg-325 mg oral tablet 1 tab, [...] 0 Refill(s) Start Date: 08/13/22 Status: Ordered HYDROcodone-acetaminophen 5 mg-325 mg oral tablet 9 EA, 0 Refill(s) Start Date: 11/19/22 Status: Ordered lamoTRIgine 100 mg oral tablet 100 mg = 1 tab, Oral, BID, 60 EA, TAKE 1 TABLET BY MOUTH TWICE DAILY, # 60 tab, 0 Refill(s), Pharmacy: [facility], 188, cm, 10/01/22 13:59:00 EDT, Height/Length Dosing, 75, kg, 10/01/22 13:59:00 EDT, Weight Dosing Start Date: 11/19/22 Stop Date: 12/19/22 Status: Ordered lamoTRIgine 25 mg oral tablet 50 mg = 2 tab, Oral, BID, 120 EA, TAKE 1 TABLET BY MOUTH ONCE DAILY FOR 7 DAYS THEN 1 TABLET TWICE A DAY FOR 1 WEEK THEN 1 TABLET 3 TIMES DAY FOR 1 WEEK THEN 2 TABLETS TWICE A DAY THEREAFTER ALONG WITH 100MG TABLET, # 120 tab, 0 Refill(s), Pharmacy: N... Start Date: 11/19/22 Status: Ordered OLANZapine 2.5 mg oral tablet 30 EA, TAKE 1 TABLET BY MOUTH ONCE DAILY, 0 Refill(s) Start Date: 11/19/22 Status: Ordered OLANZapine 5 mg oral tablet 5 mg = 1 tab, Oral, every night at bedtime, For Bipolar disorder, # 90 tab, 3 Refill(s), Pharmacy: [id number] Start Date: 08/25/22 Status: Ordered propranolol 60 mg oral capsule, extended release 60 mg = 1 cap, Oral, every night at bedtime, For Panic disorder/anxiety take at bedtime, # 90 cap, 3 Refill(s), Pharmacy: [facility] 268 Start Date: 08/25/22 Status: Ordered traZODone 100 mg oral tablet 100 mg =, Oral, every night at bedtime, Take at bedtime for sleep and anxiety, # 90 tab, 3 Refill(s), Pharmacy: [id number] Start Date: 08/25/22 Status: [...] disorder Confirmed Active Panic disorder Confirmed Active Patellofemoral syndrome of left knee Confirmed Active Person encountering health services to consult on behalf of another person Confirmed Active Rectal bleeding Confirmed Active Seizure Confirmed Active Seizure Confirmed Active Shoulder pain Confirmed Active 1associated with seizures 2as reported by pt per dr husain Procedures Procedure Date Related Diagnosis Body Site Status Arthroscopy Shoulder (Right) 1 10/07/22 Completed Surgery 2 Completed Surgery 3 Completed 1auto-populated from documented surgical case 2meniscus repair 3left shoulder surgery Social History Social History Type Response Tobacco Never tobacco user T obacco Use:. Sex Implantable Device List Procedure Provider Procedure Date Device Type Site Arthroscopy, shoulder, diagnostic, with or without synovial biopsy (separate procedure) Karly TELLO, Ortiz Lopez 10/07/22 Non Biological Shoulder R Device Identifier Serial Number Lot or Batch Number Manufacturing Date Expiration Date Distinct Identification Code MRI Safety Implantable Status Assigning Authority Unknown Unknown [id number] Unknown 04/11/25 Unknown Unknown Active Un known Unknown Unknown [id number] Unknown 05/15/24 Unknown Unknown Active Unkn own Patient Care team information Care Team Personnel Name: Stephanie Rosales Position: Physician Member Role: Primary Care Physician Address: Address: [address] [place] [address] [address] Care Team Related Persons Name: GRACE FAIR Address: Home
--- OUTSIDE RECORDS SUMMARY | 2023-05-04 17:43 | XMS_ITS | Continuity of Care Document ---
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 Role Phone Stephanie Rosales Primary Care Physician Encounter [facility] NBR [id number] Date(s): 08/25/22 - 08/25/22 [facility] Ambulatory Clinics [address] [place] [address]- [place] Discharge Disposition: Home or Self Care Attending Physician: Quin Johns MD Allergies, Adverse Reactions, Alerts Substance Reaction Severity Status Nuts Unknown Active Assessment and Plan Future Appointments Future Scheduled Tests Radiology* MRI Shoulder w/o Contrast Right 08/09/22 Functional Status 08/25/22 Other exposure to Infectious Disease Com munity exposure to COVID-19 within the last 14 days Medications Benadryl 25 mg oral capsule 25 [...] disorder, # 90 tab, 3 Refill(s), Pharmacy: [facility] Start Date: 08/25/22 Status: Ordered propranolol 60 mg oral capsule, extended release 60 mg = 1 cap, Oral, Daily, For Panic disorder/anxiety take at bedtime, # 90 cap, 3 Refill(s), Pharmacy: [id number] Start Date: 08/25/22 Status: Ordered traZODone 100 mg oral tablet 100 mg =, Oral, every night at bedtime, Take at bedtime for sleep and anxiety, # 90 tab, 3 Refill(s), Pharmacy: [id number] Start Date: 08/25/22 Status: Ordered [...] Range]: 1 Peripheral Pulse Rate [60-100 bpm] 68 bp m (08/25/22 8:01 AM) Blood Pressure [90-140/60-90 mmHg] 114/7 0mmHg (08/25/22 8:01 AM) Weight 76.93 kg (08/25/22 8:01 AM) Weight Measured (lbs) 169.601 lb (08/25/22 8:01 AM) [place] Body Weight Calculated 79.9 kg (08/25/22 8:01 AM) Height 185.42 cm (08/25/22 8:01 AM) Height/Length Measured (inches) 73 inch (08/25/22 8:01 AM) BSA Measured 1.99 m2 (08/25/22 8:01 AM) Body Mass Index 22.38 kg/m2 (08/25/22 8:01 AM) Social History Social History Type Response Tobacco Never tobacco user T obacco Use:. Sex Physician Outpatient Note * Quin Johns MD: PERFORM Event Display: Office Clinic Note Physician Authored Date: [id number] OMEGA MUSA :2000 Age:22 years Sex:Male Visit Date:08/25/2022 Primary Care Physician: Stephanie Rosales APRN Chief Complaint My depression and anxiety are getting worse. History of Present Illness Mr. Aure Cerda is a??22 year old White male who is here??c/o worsening Bipolar disorder, insomnia and worsening anxiety. He is on school break from [employer],??until next Tuesday and wants to adjust his meds now. He feels that the Lamotrigine is not working for mood stabilization, and he is getting increasinglydepressed. He has had SI, but no plans for suicide.?? He is followed in??Neurology for??his seizure disorder??by Dr. Hassan, who he says has told himto not see him for Bipolar meds, only seizure medications and that he should see Primary Care for Psych meds, per patient's report. He has a 9am??appt with Orthopedics this Tuesday for his left shoulder. We will see him for FUV thatday to discuss how he is feeling with his medication adjustments. We discussed his medications, labs,??diagnostics, and below mentioned active problems. ? Review of Systems Constitutional: He denies fever, chills, fatigue or unusual weight loss. Cardiovascular: ??He denies chest pain, palpitations or syncopal episodes.?? Respiratory: ??No dyspnea, no cough productive of phlegm, no orthopnea or hemoptysis. Gastrointestinal: ??No nausea, vomiting, diarrhea, or abdominal pain. No blood in his stool. Urologic: ??No urgency, dysuria, blood in his urine, or kidney stones. Musculoskeletal: ??No muscle weakness. Unremarkable. Neurological: No IBARRA, confusion, or dizziness; no numbness or tingling; no difficulty speaking or swallowing. ?? Physical Exam Vitals & Measurements HR:??68??(Peripheral)?? BP:??114/70?? SpO2:??97%?? HT:??185.42??cm?? WT:??76.93??kg?? BMI:??22.38?? BSA:??1.99?? General: Comfortable, showing no signs of acute distress. HEENT: PERRL, EOMI, Anicteric, No arcus senilis. OP clear, No dentures. Hearing intact. No hearing aids.?? No facial asymmetry. Neck: Supple. No JVD. [...] bruises. Warm and dry. No jaundice. 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 Good strength BL U/L extremities. Ambulates w/o assist. No focal motoror?? sensory deficits. Psych: A&Ox3. Mood and affect appropriate. No unusual anxiety or evidence of depression. ? Assessment/Plan Ordered: OLANZapine 5 mg oral tablet, 5 mg = 1 tab, Oral, every night at bedtime, For Bipolar disorder, # 90tab, 3 Refill(s), Pharmacy: [facility] propranolol 60 mg oral capsule, extended release, 60 mg = 1 cap, Oral, Daily, For Panic disorder/anxiety take at bedtime, # 90 cap, 3 Refill(s), Pharmacy: [facility] traZODone 100 mg oral tablet, 100 mg =, Oral, every night at bedtime, Take at bedtime for sleep andanxiety, # 90 tab, 3 Refill(s), Pharmacy: [id number] ?? 1. Seizure/Mood stabilization lamotrigine 100 mg oral tablet lamotrigine 25 mg oral tablet ?? 2. Bipolar disorder Olanzapine increase to 5mg QHS RTC Tuesday for FU re: medications ?? 3. Panic disorder/Anxiety Start Propranolol XR 60mg QHS?? (this helped him before) ?? 3. Insomnia Start Trazodone 100mg QHS he has taken this before ?? 4.?? Left shoulder surgery [address] [facility] arthroscopy Problem List/Past Medical History Ongoing Anxiety Anxiety [...] tobacco user Tobacco Use:. Electronically Signed on 08/25/22 08:46 AM Quin Johns MD Patient Care team information Care Team Personnel Name: Stephanie Rosales APRN Position: Physician Member Role: Primary Care Physician Address: Address: [address] [place] [address] [address] [place] [address]- Care Team Related Persons Name: GRACE FAIR
--- OUTSIDE RECORDS SUMMARY | 2023-05-04 17:43 | XMS_ITS | Continuity of Care Document ---
Author Name Unknown Organization [facility] Ambulatory Clinics Address [address] [place] [address] Care Team Providers Care Fancy Stitcher Name Role Phone David York DO Primary Care Physician Encounter [facility] NBR [id number] Date(s): 04/12/23 - 04/12/23 [facility] Ambulatory Clinics [address] [place], [place] [address] Encounter Diagnosis Convulsions(Discharge Diagnosis) - 04/12/23 EEG abnormal(Discharge Diagnosis) - 04/12/23 Discharge Disposition: Home or Self Care Attending Physician: Shruti Hassan MD Referring Physician: Shruti Hassan MD Allergies, Adverse Reactions, Alerts No Known Medication Allergies Substance Reaction Severity Status Nuts 1 Anaphylactic reaction Severe Active 1cashews and pistachios Assessment and Plan Future Scheduled Tests Radiology* MRI Shoulder w/o Contrast Right 08/09/22 Medications EpiPen 2-Girma 0.3 mg injectable kit 0.3 mg =, IM, Once Start Date: 04/06/23 Status: Ordered lamoTRIgine 100 mg oral tablet 100 mg = 1 tab, Oral, BID, Twice a day, # 180 tab, 1 Refill(s), Pharmacy: [id number], 187.96, cm, 04/12/23 8:33:00 EDT, Height, 66.95, kg, 04/12/23 8:39:00 EDT, Weight Dosing Start Date: 04/12/23 Stop Date: 06/11/23 Status: Ordered Misc Prescription medical marijuana as directed, 0 Refill(s) Start Date: 04/06/23 Status: Ordered OLANZapine 5 mg oral tablet 5 mg = 1 tab, Oral, every night at bedtime, For Bipolar disorder, # 90 tab, 3 Refill(s), Pharmacy: [facility] Start Date: 08/25/22 Status: Ordered propranolol 60 mg oral capsule, extended release 60 mg = 1 cap, Oral, every night at bedtime, For Panic disorder/anxiety take at bedtime, # 90 cap, 3 Refill(s), Pharmacy: [facility] Start Date: 08/25/22 Status: Ordered QUEtiapine 25 mg oral tablet 25 mg = 1 tab, Oral, every night at bedtime Start Date: 04/06/23 Status: Ordered traZODone 100 mg oral tablet 100 mg =, Oral, every night at bedtime, Take at bedtime for sleep and anxiety, # 90 tab, 3 Refill(s), Pharmacy: [id number] Start Date: 08/25/22 Status: Ordered Problem List Condition Confirmation Course Effective Dates Status Health Status Informant Allergy to food Confirmed Active Anxiety Confirmed Active Anxiety Confirmed Active Situational anxiety Confirmed Active Bipolar disorder Confirmed Active Bipolar affective disorder in remission Confirmed Active Cellulitis Confirmed Active Cluster headache 1 Confirmed Active Complex partial seizure 2 Confirmed Active Counseling requested Confirmed Active Depression Confirmed Active EEG abnormal Confirmed Active Electroencephalogram abnormal Confirmed Active Abnormal electroencephalogram (EEG) Confirmed Active Gastritis Confirmed Active H/O: gastric ulcer Confirmed Active Insomnia Confirmed Active Instability of right shoulder joint Confirmed Active Panic disorder Confirmed Active Patellofemoral syndrome of left knee Confirmed Active Rectal bleeding Confirmed Active Seizure Confirmed Active Convulsions Confirmed Active Shoulder pain Confirmed Active Persons encountering health services in other specified circumstances Confirmed Active 1associated with seizures 2as reported by pt per dr husain Procedures Procedure Date Related Diagnosis Body Site Status Arthroscopy Shoulder (Right) 1 10/07/22 Completed Surgery 2 Completed Surgery 3 Completed 1auto-populated from documented surgical case 2meniscus repair 3left shoulder surgery Vital Signs Most recent to oldest [Reference Range]: 1 Peripheral Pulse Rate [60-100 bpm] 72 bp m (04/12/23 8:33 AM) Blood Pressure [90-140/60-90 mmHg] 131/8 5mmHg (04/12/23 8:33 AM) Mean Arterial Pressure, Cuff [65-140 mmH g] 100 mmHg (04/12/23 8:33 AM) Weight 66.95 kg (04/12/23 8:33 AM) Weight Measured (lbs) 147.599 lb (04/12/23 8:33 AM) Weight Dosing 66.950 kg (04/12/23 8:33 AM) [place] Body Weight Calculated 82.2 kg (04/12/23 8:33 AM) Height 187.96 cm (04/12/23 8:33 AM) Height/Length Measured (inches) 74 inch (04/12/23 8:33 AM) BSA Measured 1.87 m2 (04/12/23 8:33 AM) Body Mass Index 18.95 kg/m2 (04/12/23 8:33 AM) Social History Social History Type Response [...] Safety Implantable Status Assigning Authority Unknown Unknown [id number] Unknown 04/11/25 Unknown Unknown Active Un known Unknown Unknown [id number] Unknown 05/15/24 Unknown Unknown Active Unkn own Physician Outpatient Note * Shruti Hassan MD: PERFORM, MODIFY, MODIFY Event Display: Office Clinic Note Physician Authored Date: [id number] OMEGA MUSA :2000 Age:22 years Sex:Male Visit Date:04/12/2023 Primary Care Physician: David York DO Chief Complaint PT comes today by himself. His last seizure was 2-3 months ago. He reports he had lack of sleep andwas on his phone in the middle of the night when he had seizure. He reports needing medication coverage until Juneue he is leaving town again. History of Present Illness 04/12/2023 This very pleasant young man comes for follow-up evaluation.?? I had last seen him on December 08, 2022when he needed clearance for surgery.?? At that time I had referred him to [facility] epilepsy center??formanagement of his??seizure-like episodes. ?? When I asked him about the [facility] appointment the patient says that he could not make an appointment there??as he was busy. ?? He is on lamotrigine 100 mg twice daily.?? He tells me he has had about 3-4 seizures. ?? I had a long discussion with him.?? I recommended??that he needs to be evaluated at a tertiary careepilepsy center like [facility] or [facility] or??one of the bigger hospitals in [place]. ?? The patient says he is going to be moving to??[facility] very soon. ?? I explained to him that??we will be happy to send all the records??to the new??physician and neurologist that he establishes there. ?? I also explained to him that have cut down on and will be working only 1 day a week starting??June 13, 2023. ? I also explained that we do not have EEG services and it would not be possible for us to continue providing??care as he needs a higher level of??epilepsy care. ?? I have written a prescription??for his lamotrigine 100 mg twice daily for 3 months and??I have given him 1 refill. ?? I have explained to him that??he would have to??get physician??and a neurologist??wherever he goes in [place]??and??get the prescription from??that physician.?? 6 months of time would be reasonable for him to get??a physician??locally wherever he moves.?? We will be happy to send therecords. ?? At this point in time he is discharged from our neurology practice. Review of Systems ?? The patient has no additional neurologic, psychiatric, head, ears, eyes, nose, throat, pulmonary, cardiovascular, gastrointestinal, musculoskeletal, skin, endocrine, renal, immunological, allergic, lymphoid, rheumatologic??and hematological symptoms other than those noted above Assessment/Plan 1.??Convulsions??R56.9 04/12/2023 This very pleasant young man comes for follow-up evaluation.?? I had last seen him on December 08, 2022when he needed clearance for surgery.?? At that time I had referred him to [facility] epilepsy center??formanagement of his??seizure-like episodes. ?? When I asked him about the [facility] appointment the patient says that he could not make an appointment there??as he was busy. ?? He is on lamotrigine 100 mg twice daily.?? He tells me he has had about 3-4 seizures. ?? I had a long discussion with him.?? I recommended??that he needs to be evaluated at a tertiary careepilepsy center like [facility] or [facility] or??one of the bigger hospitals in [place]. ?? The patient says he is going to be moving to??[facility] very soon. ?? I explained to him that??we will be happy to send all the records??to the new??physician and neurologist that he establishes there. ?? I also explained to him that have cut down on and will be working only 1 day a week starting??June 13, 2023. ? I also explained that we do not have EEG services and it would not be possible for us to continue providing??care as he needs a higher level of??epilepsy care. ?? I have written a prescription??for his lamotrigine 100 mg twice daily for 3 months and??I have given him 1 refill. ?? I have explained to him that??he would have to??get physician??and a neurologist??wherever he goes in [facility]??and??get the prescription from??that physician.?? 6 months of time would be reasonable for him to get??a physician??locally wherever he moves.?? We will be happy to send therecords. ?? At this point in time he is discharged from our neurology practice. ?? REVIEW OF PRIOR RECORDS 11/30/2021 1. Seizure - R56.9 (Primary), NORMAL BRAIN MRI Jul; ABNORMAL EEG ?? 2. Convulsions, unspecified convulsion type - R56.9 ?? 3. Abnormal electroencephalogram (EEG) - R94.01, EEG done on May 26, 2021 showed 2 separate generalized spike followed by slow-wave but was maximal frontal. EEG also showed intermittent slow left temporal seen for 15 to 20% of the recording. Sharp transients in left temporal region was seen 4-5 times during the recording ? November This very pleasant young man has been referred by Dr. Lizarraga for clearance for arthroscopy. Unfortunately Dr. Winters's not there and so they asked me to clear him for surgery in regards to his neurological issues. I had last seen him in June 2021 and get put him on lamotrigine. But unfortunately was continuing to have some seizures. The patient was almost having daily seizures. He had called us in July 30, 2021. Unfortunately our heavy equipment service technician had retired and we could not evaluate his seizures withthe EEG testing. Hence we referred him to [facility] in [place] for an expert opinion. Unfortunately has not yet been able to see them. He did get a phone call. But has not had the time toschedule the appointment. I encouraged him to do so. I explained that there are epilepsy experts and its important to get their input Unfortunately, our heavy equipment service technician retired in May 2021. Hands for being finding it difficult toevaluate and work-up and follow epilepsy patients. MRI brain without contrast on July 21, 2021 was normal. He is tolerating the lamotrigine 100 mg twice daily reasonably well. No major side effects. He sayshe likes it. I also reviewed Dr. De Jesus's excellent consult note on July 22, 2021. She feels that the lamotrigine started for his epilepsy is a very good choice which would help his bipolar disorder also. The patient says that his mood has been much more stable since being on the lamotrigine. He continues on the lamotrigine 100 mg twice daily. He says that he would like to have a slightly higher dose. We will start him on an additional 25 mg for a week and then 25 mg twice daily after that for another couple weeks and then 50 mg twice daily ?? JUNE 2021 I reviewed the EEG done at [facility] on May 26, 2021 with the patient. This EEG was done in awake and drowsy states. The EEG showed tiny generalized spike followed by slow-wave. This was generalized but maximal frontal. There is also intermittent slow left temporal seen for about 15 to 20% of the recording. There was sharp transients from the left temporal region seen 4-5 times during the recording. This EEG raises the possibility of generalized epilepsy. 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 This young man apparently had possibly a generalized tonic-clonic seizure when he was in [place] in summer 2020. He is saying that he is having mini seizures what sounds like complex partial seizures. CT brain without contrast done on May 19, 2021 is unremarkable to my review. This gentleman also had a questionable seizure in the last week of May2021 when he was visiting [facility]. He was apparently sitting in a restaurant where the lights triggered an unusual feeling in him and he started shaking. He was being taken to the hospital by his father when he gave him a tablet of Keppra which he takes. His father also has epilepsy and he takes Keppra. His neurologist is in [place]. ?? He is cleared for surgery for arthroscopy of his knee. He should take the lamotrigine in the morning before the surgery. 1. MRI of the brain done July 21, 2021 was normal. 2. Continue lamotrigine 100 mg twice daily. He wants to increase the dose. We will gradually increase it to 150 mg twice daily. I gave him a titration schedule. 3. Appreciate Dr. De Jesus's consultation of July 22, 2021 that she feels that lamotrigine would be excellent choice for his bipolar disorder also. 4. He is cleared for surgery for arthroscopy of the knee. He should take the lamotrigine on the morning of the surgery. 5. We have made a referral to [facility] neurology department for an epilepsy specialist referral. I have asked him to contact them again. Seizure precautions No driving. ? PLAN: March ?? 04/12/2023 This very pleasant young man comes for follow-up evaluation.?? I had last seen him on December 08, 2022when he needed clearance for surgery.?? At that time I had referred him to [facility] epilepsy center??formanagement of his??seizure-like episodes. ?? When I asked him about the [facility] appointment the patient says that he could not make an appointment there??as he was busy. ?? He is on lamotrigine 100 mg twice daily.?? He tells me he has had about 3-4 seizures. ?? I had a long discussion with him.?? I recommended??that he needs to be evaluated at a tertiary careepilepsy center like [facility] or [facility] or??one of the bigger hospitals in [place]. ?? The patient says he is going to be moving to??[facility] very soon. ?? I explained to him that??we will be happy to send all the records??to the new??physician and neurologist that he establishes there. ?? I also explained to him that have cut down on and will be working only 1 day a week starting??June 13, 2023. ? I also explained that we do not have EEG services and it would not be possible for us to continue providing??care as he needs a higher level of??epilepsy care. ?? I have written a prescription??for his lamotrigine 100 mg twice daily for 3 months and??I have given him 1 refill. ?? I have explained to him that??he would have to??get physician??and a neurologist??wherever he goes in [facility]??and??get the prescription from??that physician.?? 6 months of time would be reasonable for him to get??a physician??locally wherever he moves.?? We will be happy to send therecords. ?? At this point in time he is discharged from our neurology practice. 2.??EEG abnormal??R94.01 Problem List/Past Medical History Ongoing Abnormal electroencephalogram (EEG) Allergy to food Anxiety Anxiety Bipolar affective disorder in remission Bipolar disorder Cellulitis Cluster headache Complex partial seizure Convulsions Counseling requested Depression EEG abnormal Electroencephalogram abnormal Gastritis H/O: gastric ulcer Insomnia Instability of right shoulder joint Panic disorder Patellofemoral syndrome of left knee Persons encountering health services in other specified circumstances Rectal bleeding Seizure Shoulder pain Situational anxiety Historical No qualifying data Procedure/Surgical History ???Arthroscopy Shoulder (Right) (10/07/2022)???Surgery???Surgery Medications Benadryl Allergy 25 mg oral tablet, 25 mg= 1 tab, Oral, every night at bedtime, PRN dexamethasone 4 mg oral tablet EpiPen 2-Girma 0.3 mg injectable kit, 0.3 mg, IM, Once lamoTRIgine 100 mg oral tablet, 100 mg= 1 tab, Oral, BID, 1 refills Misc Prescription, medical marijuana as directed OLANZapine 5 mg oral tablet, 5 mg= 1 tab, Oral, every night at bedtime, 3 refills propranolol 60 mg oral capsule, extended release, 60 mg= 1 cap, Oral, every night at bedtime, 3 refills QUEtiapine 25 mg oral tablet, 25 mg= 1 tab, Oral, every night at bedtime traZODone 100 mg oral tablet, 100 mg, Oral, every night at bedtime, 3 refills Allergies Nuts??(Anaphylactic reaction) No Known Medication Allergies Social History Alcohol Past Electronic Cigarette/Vaping Electronic Cigarette Use: Never. Substance Use Never Tobacco Never tobacco user Tobacco Use:. Attending Attestation ?? Risks, Benefits , alternatives and complications discussed with the patient.Total??time spent on the day of the visit ( both previsit, during and post visit) was??42 minutes spent discussing diagnosis, prognosis, work- up and management. Time was also spent in reviewing medical records, personally r eviewing images and interpreting it, personally reviewing and interpreting electrodiagnostic studies, labs and discussing with other providers. ?? Thank you very much for allowing us to participate in the care of your patient. Please do not hesitate to call if you have any questions or comments. ?? This document was prepared using Giggle voice recognition software.Please excuse any errors.?? Electronically Signed on 04/12/23 09:06 AM Shruti Hassan MD Patient Care team information Care Team Personnel Name: David York DO Position: Physician Member Role: Primary Care Physician Address: Address: [address] [place] [id number] [place] Care Team Related Persons Name: GRACE FAIR
--- OUTSIDE RECORDS SUMMARY | 2023-05-04 17:43 | XMS_ITS | Continuity of Care Document ---
Author Name Unknown Organization [facility] Ambulatory Clinics Address [address] [place] [address] Encounter [facility] FIN NBR [id number] Date(s): 06/01/22 - 06/01/22 [facility] Ambulatory Clinics [address] [place], [place] [address] Encounter Diagnosis Instability of right shoulder joint(Discharge Diagnosis) - 06/01/22 Discharge Disposition: Home or Self Care Attending Physician: Ortiz Brandt MD Allergies, Adverse Reactions, Alerts Substance Reaction Severity Status Nuts Unknown Active Functional Status 06/01/22 Other exposure to Infectious Disease Non e Medications lamoTRIgine 100 mg oral tablet 60 EA, [...] 0 Refill(s) Start Date: 06/01/22 Status: Ordered Problem List Condition Confirmation Course Effective Dates Status Health [facility] Informant Instability of right shoulder joint Confirmed Active Vital Signs Most recent to oldest [Reference Range]: 1 Peripheral Pulse Rate [60-100 bpm] 66 bp m (06/01/22 9:50 AM) Blood Pressure [90-140/60-90 mmHg] 122/7 0mmHg (06/01/22 9:50 AM) Weight 72.57 kg (06/01/22 9:50 AM) Weight Measured (lbs) 159.989 lb (06/01/22 9:50 AM) Height 185.42 cm (06/01/22 9:50 AM) Height/Length Measured (inches) 73 inch (06/01/22 9:50 AM) BSA Measured 1.93 m2 (06/01/22 9:50 AM) Body Mass Index 21.11 kg/m2 (06/01/22 9:50 AM) Social History Social History Type Response Tobacco Never tobacco user T obacco Use:. Sex Physician Outpatient Note * Ortiz Brandt MD: PERFORM Event Display: Office Clinic Note Physician Authored Date: [id number] OMEGA MUSA :2000 Age:22 years Sex:Male Visit Date:06/01/2022 Chief Complaint R shoulder pain, xrays today. History of Present Illness The patient is a??22-year-old gentleman is well-known to me,??he has had a left shoulder stabilization the past??and also meniscectomy.?? He is known to have??fairly significant ligamentous laxity. Currently patient is playing tennis about a month ago??went to serve a ball??and felt immediate sharp pain to his shoulder.?? He tried to keep playing but the pain increased and ultimately had to stop. ??Since that time is continued to have significant right shoulder pain??associated with any lifting, reaching, he has been putting his arm above his head, thus far has had no treatment. Physical Exam Vitals & Measurements HR:??66??(Peripheral)?? BP:??122/70?? SpO2:??98%?? HT:??185.42??cm?? WT:??72.57??kg?? BMI:??21.11?? Pain Score:??7?? BSA:??1.93?? Review of studies: X-rays of the patient's right shoulder are reviewed and are negative ?? Both shoulders are examined. Range of motion of the shoulder is examined in the forward elevation, abduction, external rotation and internal rotation behind the back planes. External rotation is assessed both with the arm in neutral adduction and at 90 degrees of abduction. Similarly internal rotation is performed at 90 degrees of abduction and is compared with the contralateral side. Neer and Spann impingement signs are examined. Strength is assessed in forward elevation, abduction, externaland internal rotation planes.?Cross-arm adduction test is examined. The shoulder is systematically palpated anteriorlyin the region of the coracoid process, the anterior joint line and bicipital groove. The AC joint is palpated. The greater tuberosity is palpated. The posterior joint line is palpated. Moore and active compression tests are performed. The supraspinatus and infraspinatus fossa are examined for signs of atrophy. Stability is test using the apprehension, relocation and Jerk Test. ?? Focused exam the right shoulder shows 170 degrees of active elevation,??there is 4+ out of 5 strength abduction 4 out of 5 strength to external rotation, 4+ or 5 strength internal rotation,??thereis a positive jerk test, positive apprehension, positive relocation test.?? There is sulcus sign. Assessment/Plan 1.??Instability of right shoulder joint??M25.311 Patient with what I believe is a subluxation of the right shoulder and now with significant rotatorcuff pain.?? I plans to put??patient in physical therapy to work on cuff strengthening??which I think will help stabilize his shoulder.?? If he does not improve after a month I will likely get an MRIto look for labral pathology. Problem List/Past Medical History Ongoing Instability of right shoulder joint Historical No qualifying data Medications lamoTRIgine 100 mg oral tablet lamoTRIgine 25 mg oral tablet OLANZapine 2.5 mg oral tablet Allergies Nuts Social History Electronic Cigarette/Vaping Electronic Cigarette Use: Never. Tobacco Never tobacco user Tobacco Use:. Electronically Signed on 06/01/22 10:23 AM Ortiz Brandt MD
--- OUTSIDE RECORDS SUMMARY | 2023-05-04 17:43 | XMS_ITS | Continuity of Care Document ---
Author Name Unknown Organization [facility] Ambulatory Clinics Address [address] [place] [address] Care Team Providers Care Molder Bench Name Role Phone Stephanie Rosaels Primary Care Physician [phone] Encounter [facility] FIN NBR [id number] Date(s): 08/27/22 - 08/27/22 [facility] Ambulatory Clinics [address] [place] [address]- Encounter Diagnosis Instability of right shoulder joint(Discharge Diagnosis) - 08/27/22 Discharge Disposition: Home or Self Care Attending [...] disorder, # 90 tab, 3 Refill(s), Pharmacy: [id number] Start Date: 08/25/22 Status: Ordered propranolol 60 mg oral capsule, extended release 60 mg = 1 cap, Oral, Daily, For Panic disorder/anxiety take at bedtime, # 90 cap, 3 Refill(s), Pharmacy: [facility] Start Date: 08/25/22 Status: Ordered traZODone 100 mg oral tablet 100 mg =, Oral, every night at bedtime, Take at bedtime for sleep and anxiety, # 90 tab, 3 Refill(s), Pharmacy: [id number] Start Date: 08/25/22 Status: Ordered [...] Range]: 1 Peripheral Pulse Rate [60-100 bpm] 70 bp m (08/27/22 9:00 AM) Blood Pressure [90-140/60-90 mmHg] 124/6 2mmHg (08/27/22 9:00 AM) Weight 76.93 kg (08/27/22 9:00 AM) Weight Measured (lbs) 169.601 lb (08/27/22 9:00 AM) Height 185.42 cm (08/27/22 9:00 AM) Height/Length Measured (inches) 73 inch (08/27/22 9:00 AM) BSA Measured 1.99 m2 (08/27/22 9:00 AM) Body Mass Index 22.38 kg/m2 (08/27/22 9:00 AM) Social History Social History Type Response Tobacco Never tobacco user T obacco Use:. Sex Physician Outpatient Note * Ortiz Brandt MD: PERFORM Event Display: Office Clinic Note Physician Authored Date: [id number] OMEGA MUSA :2000 Age:22 years Sex:Male Visit Date:08/27/2022 Primary Care Physician: Stephanie Rosales APRN Chief Complaint R shoulder pain History of Present Illness Omega returns today,??he continues to have he says severe pain??and feeling of instability to his right shoulder,??he tried doing some exercises??to strengthen the shoulder but said it was too painful,??he has pain with any activity when he reaches or lifts but also has some pain at rest,??he has had a shoulder stabilization in the contralateral shoulder with good effect.?? He does have a history of he says??7 or 8 dislocations of this right shoulder although none recently.?? He had an MRI performed at an outside institution unfortunately his MRI is not yet available for review Physical Exam Vitals & Measurements HR:??70??(Peripheral)?? BP:??124/62?? SpO2:??98%?? HT:??185.42??cm?? WT:??76.93??kg?? BMI:??22.38?? BSA:??1.99?? Examination today??of the right shoulder??shows full range of motion, there is 4+ out of 5 cuff strength, positive apprehension positive relocation negative jerk test,.?? The patient does have??global ligamentous laxity. Assessment/Plan 1.??Instability of right shoulder joint??M25.311 Patient with??complex shoulder, unfortunately I do not the MRI for review today??but patient's biggest complaint is pain more so than true instability.?? My feeling however though??is that??the pain??may be from the fact that the patient has??laxity and multidirectional instability,??and he did have an excellent result on the contralateral side with a stabilization.?? I will therefore plan on??looking the patient's MRI??and then having failed??nonoperative treatment??we discussed??proceeding with??labral repair if there is in fact a Bankart lesion??if not??we would perform a capsulorrhaphy??an d also??likely??a bursectomy.?? We discussed risks of surgery include loss of motion, infection, neurologic injury,??we discussed incomplete pain relief given that patient's symptoms are somewhat unusual,??patient understands this??I did ask him??if we could try another round of therapy but at thispoint??he does not think he could tolerate this.?? Again we will get the MRI before we move forward but right now the plan is??as described above. Problem List/Past Medical History Ongoing Anxiety Anxiety [...] user Tobacco Use:. Electronically Signed on 08/27/22 09:26 AM Ortiz Brandt MD Patient Care team information Care Team Personnel Name: Stephanie Rosales APRN Position: Physician Member Role: Primary Care Physician Address: Address: [address] [place] [address] [address] [place] [address]- Care Team Related Persons Name: GRACE FAIR
--- OUTSIDE RECORDS SUMMARY | 2023-05-04 17:43 | XMS_ITS | Continuity of Care Document ---
Author Name Unknown Organization [facility] Address [address] [place] [address] Encounter [facility] FIN NBR [id number] Date(s): 06/01/22 - 06/01/22 [facility] [address] [place] [address]- Discharge Disposition: Home or Self Care Attending Physician: Ortiz Brandt MD Admitting Physician: Ortiz Brandt MD Allergies, Adverse Reactions, Alerts Substance Reaction Severity Status Nuts Unknown Active Medications lamoTRIgine 100 mg oral tablet 60 [...] Instability of right shoulder joint Confirmed Active Results Radiology Reports * Exam Date Time Procedure Performing Provider Status 06/01/22 9:34 AM XR Shoulder Complete 2+ Views Right Marivel Newsome; Genaro (Verified) Notes: (XR Shoulder Complete 2+ Views Right) Reason For Exam: Pain XR Shoulder Complete 2+ Views Right EXAM DESCRIPTION: XR Shoulder Complete 2+ Views Right 06/01/2022 INDICATION: PAIN COMPARISON: None IMPRESSION: No acute fracture or dislocation No regional arthritic changes. AC joint and glenohumeral joint spaces are well maintained Small sclerotic foci overlying the glenoid and humeral head likely reflecting bone islands. JOB #: [id number] Final Signed by: Raimundo Rivas MD Signed (Electronic Signature): 06/01/2022 9:41 am Social History Social History Type Response Tobacco Never tobacco user T obacco Use:. Sex XR Shoulder - right GE 2 Views * Raimundo Rivas MD: VERIFY, VERIFY Event Display: Report EXAM DESCRIPTION: XR Shoulder Complete 2+ Views Right 06/01/2022 INDICATION: PAIN COMPARISON: None IMPRESSION: No acute fracture or dislocation No regional arthritic changes. AC joint and glenohumeral joint spaces are well maintained Small sclerotic foci overlying the glenoid and humeral head likely reflecting bone islands. JOB #: [id number] Final Signed by: Raimundo Rivas MD Signed (Electronic Signature): 06/01/2022 9:41 am
--- OUTSIDE RECORDS SUMMARY | 2023-05-04 17:43 | XMS_ITS | Continuity of Care Document ---
Author Name Unknown Organization [facility] Address [address] [place] [address] Care Team Providers Care Business Job Titles Name Role Phone David York DO Primary Care Physician Encounter [facility] FIN NBR [id number] Date(s): 03/11/23 - 03/11/[address] [address] Encounter Diagnosis Odynophagia(Discharge Diagnosis) - 03/11/23 Hoarseness of voice(Discharge Diagnosis) - 03/11/23 Dysphagia, unspecified(Final) - Dysphonia(Final) - Discharge Disposition: Home f/u Internal Provider Attending Physician: Timothy Baxter MD Admitting Physician: Timothy Baxter MD Allergies, Adverse Reactions, Alerts No Known Medication Allergies Substance Reaction Severity Status Nuts 1 Anaphylactic reaction Severe Active 1cashews and pistachios Assessment and Plan Future Appointments Future Scheduled Tests Radiology* MRI Shoulder w/o Contrast Right 08/09/22 Medications dexamethasone 4 mg oral tablet 8 mg = 2 tab, Oral, Daily, X 3 days, # 6 tab, 0 Refill(s), 03/14/23 5:14:00 PM CDT, Pharmacy: [id number], 187, cm, 03/11/23 16:46:00 EDT, Height/Length Dosing, 70, kg, 03/11/23 16:46:00 EDT, Weight Dosing Start Date: 03/11/23 Stop Date: 03/14/23 Status: Ordered lamoTRIgine 100 mg oral tablet 100 mg = 1 tab, Oral, BID, Twice a day, # 60 tab, 1 Refill(s), Pharmacy: [id number], 188, cm, 10/01/22 13:59:00 EDT, Height/Length Dosing, 75, kg, 10/01/22 13:59:00 EDT, Weight Dosing Start Date: 02/25/23 Stop Date: 04/26/23 Status: Ordered OLANZapine 5 mg oral tablet 5 mg = 1 tab, Oral, every night at bedtime, For Bipolar disorder, # 90 tab, 3 Refill(s), Pharmacy: [id number] Start Date: 08/25/22 Status: Ordered propranolol 60 mg oral capsule, extended release 60 mg = 1 cap, Oral, every night at bedtime, For Panic disorder/anxiety take at bedtime, # 90 cap, 3 Refill(s), Pharmacy: [id number] Start Date: 08/25/22 Status: Ordered traZODone 100 mg oral tablet 100 mg =, Oral, every night at bedtime, Take at bedtime for sleep and anxiety, # 90 tab, 3 Refill(s), Pharmacy: [id number] Start Date: 08/25/22 Status: [...] case 2meniscus repair 3left shoulder surgery Results Laboratory List Name Date SARS-CoV-2 (Covid-19) AG (Nery) POCT Most recent to oldest [Reference Range]: 1 SARS-CoV or CoV-2 (COVID-19) Ag (Nery) [Negative] Negative (03/11/23 3:31 PM) Employed in healthcare? Unknown *NA* (03/11/23 3:31 PM) Symptomatic as defined by CDC? Unknown *NA* (03/11/23 3:31 PM) Date of onset (Lab) Unknown *NA* (03/11/23 3:31 PM) Hospitalized due to COVID-19? Unknown *NA* (03/11/23 3:31 PM) In ICU? Unknown *NA* (03/11/23 3:31 PM) Group care resident? Unknown *NA* (03/11/23 3:31 PM) status? Unknown *NA* (03/11/23 3:31 PM) Vital Signs Most recent to oldest [Reference Range]: 1 Temperature Tympanic [36.6-37.9 Deg C] 3 7 Deg C (03/11/23 4:22 PM) Peripheral Pulse Rate [60-100 bpm] 61 bp m (03/11/23 4:22 PM) Respiratory Rate [12-24 br/min] 18 br/mi n (03/11/23 4:22 PM) Blood Pressure [90-140/60-90 mmHg] 127/8 4mmHg (03/11/23 4:22 PM) Weight 70.00 kg (03/11/23 4:22 PM) Weight Dosing 70.00 kg (03/11/23 4:46 PM) Height 187.000 cm (03/11/23 4:22 PM) Height/Length Dosing 187.000 cm (03/11/23 4:46 PM) Body Mass Index 20.000 kg/m2 (03/11/23 4:22 PM) Social History Social History Type Response [...] Safety Implantable Status Assigning Authority Unknown Unknown [id number] Unknown 04/11/25 Unknown Unknown Active Un known Unknown Unknown [id number] Unknown 05/15/24 Unknown Unknown Active Unkn own Hospital Discharge Instructions Follow Up Care 03/11/2023 16:22:22 With:Follow up with specialist Address:Unknown When:1 month With:David York, DO Address: [address] [place] [address] When:1 month Physician Emergency department Note * ABEL Brown: PERFORM Event Display: ED Note Physician Authored Date: [id number] OMEGA MUSA :2000 Age:22 years Sex:Male Visit Date:03/11/2023 Primary Care Physician: David York DO Basic Information Time Seen: ABEL Brown / 03/11/2023 16:29 Chief Complaint pt reports sore throat for month today worse pt has muffled voice throat is pale and pt reports pain 7/10 nery running History Of Present Illness: Patient is a 22-year-old male here for continued??hoarse voice and pain in the??anterior aspect of his throat.?? His??throat was tight during a wrestling match approximately a month ago and he is continue to have the symptoms.?? He was evaluated last on ???22 in the emergency department.?? States that his voice has become more hoarse since that time. ??States he??has not made his appointment??yet for ENT.? Review of Systems: see HPI Physical Exam Vitals & Measurements T:??37?C ??(Tympanic)?? HR:??61??(Peripheral)?? RR:??18?? BP:??127/84?? SpO2:??100%?? HT:??187.000??cm?? WT:??70.00??kg?? BMI:??20.000?? Pain Score:??6?? General: Patient is alert and engaging, appears well. Is in no acute distress. Speaking comfortablyin full sentences.?? Constitutional: No fevers, chills or diaphoresis.?? HEENT: Head normocephalic and atraumatic. Neck supple with FROM w/o lymphadenopathy or JVD. Tracheamidline. No c-spine tenderness. ??Oral mucosa moist.?? Visualize posterior pharynx and tonsils. ??No??lesions or edema present to the oral structures.?? Good dentition. ??Voice is raspy when speaking. Respiratory: ??No obvious work of breathing, regular rate. Cardiovascular: Heart regular rate and rhythm w/o murmurs, rubs or gallops. No peripheral edema present.?? Extremities: No obvious deformities. FROM.?? Integumentary: Skin warm and pink. No rashes or ecchymosis present.?? Neuro: CN III-XII grossly intact.?? Psychiatric: acting appropriate for age and circumstance. Normal mood without obvious ??affect.?? Medical Decision Making: Patient is a pleasant 22-year-old male here for reevaluation of??this pain and??popping sensation he is feeling in the anterior aspect of the throat. ??Vitals obtained and reviewed. ??He is not presenting in any respiratory distress. ??Is sitting comfortably on the bed speaking full sentence. ??Managing his own secretions.?? No??audible stridor or stridor. ??He has been eating and drinking??without concern.?? At the last ED visit there was a CT soft tissue??obtained of the neck??with no acute findings. ??Did not feel it appropriate to repeat the study.?? Patient was given??first mouthwash??aswell as dexamethasone. ??Prescription of dexamethasone prescribed.?No indication for an emergentscope.?? Reiterated the importance of ENT follow-up and he plans to??call in the morning. Procedure No Qualifying Data Assessment/Plan 1.??Odynophagia??R13.10 Discharged home. ??Dexamethasone prescribed. ??Will have his follow-up with ENT. ??Return precautions understood. Ordered: Discharge Patient, 03/11/23 18:15:00 EDT ?? 2.??Hoarseness of voice??R49.0 Ordered: Discharge Patient, 03/11/23 18:15:00 EDT ?? Orders: dexamethasone 4 mg oral tablet, 8 mg = 2 tab, Oral, Daily, X 3 days, # 6 tab, 0 Refill(s), 03/14/2318:14:00 EDT, Pharmacy: [facility], 187, cm, 03/11/23 16:46:00 EDT, Height/Length Dosing, 70, kg, 03/11/23 16:46:00 EDT, Weight Dosing Follow Up With When Contact Information Follow up with specialist Within 1 month Additional Instructions: David York, DO Within 1 month [address] [place] [address] Additional Instructions: Medication Reconciliation New Prescription dexamethasone (dexamethasone 4 mg oral tablet)2 tab Oral (given by mouth) every day for 3 Days. Refills: 0. ?? Unchanged lamoTRIgine (lamoTRIgine 100 mg oral tablet)1 [...] data Procedure/Surgical History ???Arthroscopy Shoulder (Right) (10/07/2022)???Surgery???Surgery Medication Administration Given dexamethasone, 4 mg, Oral FIRST Mouthwash BLM, 5 mL, Oral Allergies Nuts??(Anaphylactic reaction) No Known Medication Allergies Social History Alcohol Past Electronic Cigarette/Vaping Electronic Cigarette Use: Never. Substance Use Never Tobacco Never tobacco user Tobacco Use:. Electronically Signed on 03/11/23 08:52 PM ABEL Brown Emergency department Discharge instructions * ABEL Brown: PERFORM Event Display: ED Discharge Information Authored Date: [id number] OMEGA MUSA :2000 Age:22 years Sex:Male Visit Date:03/11/2023 Primary Care Physician: David York, DO Discharge Instructions We would like to thank you for allowing us to assist you with your healthcare needs. The following includes patient education materials and information regarding your injury/illness. Diagnosis from Today's Visit Odynophagia Hoarseness of voice Discharge Vitals Temperature??(Tympanic) 98.6 ??F (37 ??C) Heart Rate??(Peripheral) 61 Respiratory Rate?? 18 Blood Pressure?? 127/84?? Height?? 73.62 in (187.000 cm) Weight?? 154.35 lb (70.00 kg) BMI?? 20.000 Allergies Nuts??(Anaphylactic reaction) No Known Medication Allergies What to Do Next Instructions from Your Care Team Please follow up with ENT as discussed previously. You Need to Schedule the Following Appointments Follow Up with??Follow up with specialist When:??Within 1 month Follow Up with??David York, DO When:??Within 1 month Where: [address] [place] [address] Upcoming Scheduled Appointments Tuesday 8:00 AM EDT ?? With: Shruti Hassan MD Where: [facility] Neurology Status: Confirmed You were treated today [...] What How Much When Instructions Next Dose New dexamethasone (dexamethasone 4 mg oral tablet) 2 tab Oral (given by mouth) Every day Duration: 3 Days Pickup at [facility] Unchanged lamoTRIgine (lamoTRIgine 100 mg oral tablet) [...] at bedtime for sleep and anxiety ?? Pharmacy Information [id number]: [address] [place], [place] [id number] [phone] Tests Performed Lab Test Name Test Result Date/Time SARS-CoV or CoV-2 (COVID-19) Ag (Nery) Negative 03/11/2023 15:31 EDT Employed in healthcare? Unknown 03/11/2023 15:31 EDT Symptomatic as defined by CDC? Unknown 03/11/2023 15:31 EDT Date of onset (Lab) Unknown 03/11/2023 15:31 EDT Hospitalized due to COVID-19? Unknown 03/11/2023 15:31 EDT In ICU? Unknown 03/11/2023 15:31 EDT Group care resident? Unknown 03/11/2023 15:31 EDT status? Unknown 03/11/2023 15:31 EDT Patient/Actuarial Director Signature Patient Name:OMEGA MUSA I have received this information and my questions have been answered. Patient/Actuarial Director Name: Patient/Actuarial Director Signature: Relationship to Patient: Witness Name/Signature: Date: Electronically Signed on: 03/11/2023 18:19 EDTSigned by:DENIZ Patient Care team information Care Team Personnel Name: David York DO Position: Physician Member Role: Primary Care Physician Address: Address: [address] [place] [address] Name: Adilson Laird Position: Nurse Member Role: ED Nurse Name: ABEL Brown Position: Physician Member Role: Physician Address: Address: [address] [place] [address] Care Team Related Persons Name: GRACE FAIR
--- OUTSIDE RECORDS SUMMARY | 2023-05-04 17:43 | XMS_ITS | Continuity of Care Document ---
Author Name Unknown Organization [facility] Address [address] [place] [address] Care Team Providers Care Raisin Separator Operator Name Role Phone David York DO Primary Care Physician Encounter [facility] NBR [id number] Date(s): 03/04/23 - 03/04/23 [facility] [address] [place] [address]- Discharge Disposition: Home or Self Care Attending [...] day, # 60 tab, 1 Refill(s), Pharmacy: [id number], 188, cm, 10/01/22 13:59:00 EDT, Height/Length Dosing, 75, kg, 10/01/22 13:59:00 EDT, Weight Dosing Start Date: 02/25/23 Stop Date: 04/26/23 Status: Ordered OLANZapine 5 mg oral tablet 5 mg = 1 tab, Oral, every night at bedtime, For Bipolar disorder, # 90 tab, 3 Refill(s), Pharmacy: [id number] Start Date: 08/25/22 Status: Ordered propranolol 60 mg oral capsule, extended release 60 mg = 1 cap, Oral, every night at bedtime, For Panic disorder/anxiety take at bedtime, # 90 cap, 3 Refill(s), Pharmacy: [id number] Start Date: 08/25/22 Status: Ordered traZODone 100 mg oral tablet 100 mg =, Oral, every night at bedtime, Take at bedtime for sleep and anxiety, # 90 tab, 3 Refill(s), Pharmacy: [id number] Start Date: 08/25/22 Status: Ordered Problem List [...] Date Time Procedure Performing Provider Status 03/04/23 6:03 PM XR Neck Soft Tissue Shirlene Stephen; Auth (Verified) Notes: (XR Neck Soft Tissue) Reason For Exam: crush injury R side larynx XR Neck Soft Tissue PROCEDURE INFORMATION: Exam: XR Soft Tissue Neck Exam date and time: 03/04/2023 5:59 PM Age: 22 years old Clinical indication: Other specified symptoms and signs involving the circulatory and respiratory systems; Other specified symptoms and signs involving the circulatory and respiratory systems; Unspecified voice and resonance disorder; Unspecified voice and resonance disorder; Crushing injury of larynx and trachea, initial encounter; Crushing injury of larynx and trachea, initial encounter; Additional info: Crush injury R side larynx TECHNIQUE: Imaging protocol: Radiologic exam of the soft tissues of the neck. COMPARISON: CR XR SHOULDER RIGHT 06/01/2022 9:42 AM FINDINGS: Airway: Normal. No abnormal narrowing. Soft tissues: Normal. Normal epiglottis. Bones/joints: Unremarkable. IMPRESSION: No acute findings. THIS DOCUMENT HAS BEEN ELECTRONICALLY SIGNED BY NICKOLAS ENGLISH MD on 03/04/2023 06:31 PM Final Signed by: Nickolas English MD Signed (Electronic Signature): 03/04/2023 6:31 pm Social History Social History Type Response Tobacco [...] Safety Implantable Status Assigning Authority Unknown Unknown [id number] Unknown 04/11/25 Unknown Unknown Active Un known Unknown Unknown [id number] Unknown 05/15/24 Unknown Unknown Active Unkn own Patient Care team information Care Team Personnel Name: David York DO Position: Physician Member Role: Primary Care Physician Address: Address: [address] [place] [id number] [place] Care Team Related Persons Name: GRACE FAIR
[2023-05-04 18:08] LABS: Abs Immature Grans 0.02 10^3/uL (0.0-0.06); Absolute Basophil Count 0.07 10^3/uL (0.0-0.2); Absolute Eosinophil Count 0.44 10^3/uL (0.0-0.7); Absolute Lymphocyte Count 1.65 10^3/uL (1.2-3.4); Absolute Monocyte Count 0.53 10^3/uL (0.1-0.8); Absolute Neutrophil Count 4.49 10^3/uL (1.2-6.7); Eosinophils % 6.1; HCT 45.1 % (40.0-50.0); HGB 15.5 g/dL (13.5-17.5); Immature Grans % 0.3; Lymphocytes % 22.9; MCH 31.3 pg (27.0-33.0); MCHC 34.4 % (32.0-36.0); MCV 91 fL (80-95); Monocytes % 7.4; Neutrophils % 62.3; Platelet Count 254 10^3/uL (130-400); RBC 4.95 10^6/uL (4.36-5.78); RDW 12.9 % (11.8-14.1); RDW-SD 43.4 fL
[2023-05-04] MEDS: LORazepam 2 MG/ML VIAL 1 MG IVP (18:21)
[2023-05-04] MEDS: Normal Saline 1,000 ML 1000 ML IV (18:22)
[2023-05-04 18:27] LABS: ALT 33 U/L (16-63); AST 19 U/L (15-37); Albumin 4.3 g/dL (3.4-5.0); Alkaline Phosphatase 64 U/L (46-116); Anion Gap 4.2 mmol/L (3-11); BUN 6 mg/dL (7-18); Bilirubin, Total 0.9 mg/dL (0.2-1.0); CO2 32.8 mmol/L (21.0-32.0); CREATININE 1.1 mg/dL (0.70-1.30); Calcium 9.9 mg/dL (8.5-10.1); Chloride 103 mmol/L (98-107); Creatine Kinase 63 U/L (39-308); Estimated GFR 97.95 (mL/min/1.73m2); Glucose 93 mg/dL (74-106); Lipase 29 U/L (16-77); Magnesium 2.1 mg/dL (1.8-2.4); Potassium 4.2 mmol/L (3.5-5.1); Sodium 140 mmol/L (136-145); Total Protein 7.5 g/dL (6.4-8.2)
[2023-05-04 18:38] LABS: ETHANOL BLOOD < 3.0 mg/dL (<10)
[2023-05-04 20:05] LABS: Bilirubin Negative (Negative); Blood Trace-intact (Negative); Clarity Clear (Clear); Glucose Negative (Negative); Ketones Negative (Negative); Leukocyte Esterase Negative (Negative); Nitrite Negative (Negative); Urobilinogen 0.2 mg/dL (Up to 0.2); pH 7.5 (5-8)
[2023-05-04 20:12] LABS: Epithelial Cells Negative HPF (Negative); RBC 0-2 HPF (0-2); WBC Negative HPF (0-5)
[2023-05-04 20:13] LABS: Bacteria Rare HPF (Negative); C & S Indicated? No; Casts Negative LPF (Negative); Crystals Negative HPF (Negative); Mucus Negative (Negative)
[2023-05-04 20:25] LABS: *AMPHETAMINES SCREEN URINE Negative (Negative); *BARBITURATES SCREEN URINE Negative (Negative); *BENZODIAZEPINES SCREEN URINE Negative (Negative); Cannabinoids THC Negative (Negative); Cocaine Screen,Urine Negative (Negative); METHADONE URINE SCREEN Negative (Negative); OPIATES URINE SCREEN Negative (Negative)
[2023-05-04 20:26] LABS: Tricyclic Antidepressants Negative (Negative)
[2023-05-04] MEDS: LORazepam 1 MG TAB PO (21:10)
[2023-05-08 15:20] LABS: Lamotrigine 8.9 mcg/mL (3.0-15.0)
== END 2023-05-04 21:10 | disposition home or self-care (01) ==
PROVIDERS: Emergency Provider Physician Assistant
DX: G40.909 Epilepsy, unspecified, not intractable, without status epilepticus (principal); Z79.899 Other long term (current) drug therapy
CPT/HCPCS: 80053; 80175; 80307; 82550; 83690; 96361; 96374; 99284; 80320; 81003; 81015; 83735; 85025; J2060

== ENCOUNTER 2023-05-17 03:39 | Emergency (ER) | payer BC, SELFPAY ==
[2023-05-17 03:42] VITALS: BP 161/100; PULSE 57; RESP 18; TEMP 37.2; O2SAT 97
[2023-05-17 03:45] VITALS: BP 144/90; PULSE 62; RESP 18; TEMP 37.2; O2SAT 100
--- NOTE | 2023-05-17 03:45 | RT.EKG_ITS ---
APPROVED REPORT Exam: Resting ECG Reason for Exam: chest pain Patient Location: E HR:54 bpm ECG Measurements Heart Rate 54 AXIS NE 189 P 0 QRSd 84 QRS 68 QT 426 T 26 QTc 403 Conclusion Sinus bradycardia normal axis normal st segments
--- NOTE | 2023-05-17 03:52 | ED.GENADUL_ITS ---
Discharge Plan Disposition Patient Disposition: Home Discharge Details Clinical Impression: Bradycardia, Chest pain of uncertain etiology ED Provider: Claude Walker Home Meds and New Rx's Prescriptions: No Action lamotrigine [Lamictal] 100 mg tablet 100 mg PO BID diazepam [Diastat] 2.5 mg kit 5 mg IL Q6H PRN (Reason: epilepsy) Qty: 1 0RF Discharge Instructions Additional Instructions: please only take medication that is prescribed to you follow up with primary care doctor you can take motrin or tylenol for any discomfort Medical Decision Making Emergent evaluation of chest pain. Patient is a 23-year-old gentleman that is not a smoker and has no significant family history for coronary disease. He feels that his heart is racing secondary to recent Adderall use. He has noted to be bradycardic. He is on propranolol per his report for his anxiety. This would explain his bradycardia. It is sinus bradycardia. His exam is otherwise benign. Given his normal exam and lack of risk factors, do not feel that blood work is indicated to further evaluate or characterize his chest pain. Recommend NSAIDs as needed for pain. The patient does have a bizarre affect and seems that there may be history of seizure or psychiatric disorder from prior notes. I have placed him on the referral list to be established with a PCP. Medical Records Medical records reviewed: Yes I reviewed the patient's medical records. ECG Data Attestation: I personally reviewed and interpreted this ECG (s) as follows: Prior ECG tracings: not available for review Interpretation: Sinus bradycardia 54, normal ST segment changes. HPI General Date/Time Provider Initiated Documentation: 05/17/23 03:52 . Limitations to Documentation: no limitations . Information obtained by: patient . HPI Narrative: 23-year-old gentleman with past medical history of seizure disorder and anxiety presents for evaluation of chest pain. He reports that 2 days ago he took 60 mg of Adderall. Since that time he has been having chest tightness. He states that he feels like he has to think very hard to that he cannot take a deep breath. He has been taking his propranolol daily which she takes for anxiety. He denies any alcohol or drug use. He has not taken any medication to relieve his discomfort. Related Data Home Medications Medication Instructions Recorded Confirmed diazepam 2.5 mg rectal kit 5 mg IL Q6H PRN epilepsy 2 doses 05/04/23 (Diastat) #1 ea lamotrigine 100 mg tablet 100 mg PO BID 05/04/23 05/04/23 (Lamictal) Previous Rx's Medication Instructions Recorded diazepam 2.5 mg rectal kit 5 mg IL Q6H PRN epilepsy 2 doses 05/04/23 (Diastat) #1 ea Allergies Allergy/AdvReac Type Severity Reaction Status Date / Time No Known Allergies Allergy Unverified 05/04/23 17:34 General Stated Complaint: GenMedical LOBO: 3 PFSH All Active Problems Chest pain of uncertain etiology (Acute) Bradycardia (Acute) Seizure disorder (Chronic) Social History Smoking/Tobacco Use Status: Never Smoking risk assessment performed?: Yes Alcohol Intake: former Drug use: Socially Substance use type: does not use Housing: apartment Do you feel safe at home: Yes Do you feel safe in your relationship?: Yes Exam Narrative Exam Narrative: Review of Systems: All systems reviewed & are unremarkable except as noted in H PI and below: CONSTITUTIONAL: Alert and oriented Well-developed, no acute distress HEENT: NCAT EYES: PERRL, no conjunctival injection EARS: no external abnormality NOSE nares patent MOUTH Moist MM NECK: Symmetric, trachea midline, No thyromegaly THROAT oropharynx clear CVS: Bradycardic, No murmurs or gallops. Peripheral pulses 2+ and equal in all extremities No chest wall tenderness RESP: Unlabored respiratory effort, Clear to auscultation bilaterally No wheezes rales or rhonchi GI: Soft, Nontender, Nondistended, No organomegaly MSK: Extremities with full range of motion, no deformity or TTP SKIN: Warm, Dry. No rashes or lesions. NEURO: No focal neurologic deficits. PSYCH: Flat affect Course Vital Signs Vital signs: Vital Signs Temperature 37.2 C 05/17/23 03:42 Pulse 57 L 05/17/23 03:42 Respiratory Rate 18 05/17/23 03:42 Blood Pressure 161/100 H 05/17/23 03:42 Pulse Oximetry 97 05/17/23 03:42 Temperature 37.2 C 05/17/23 03:45 Temperature Source Temporal Artery Scan 05/17/23 03:42 Pulse 62 05/17/23 03:45 Respiratory Rate 18 05/17/23 03:45 Respiratory Effort Normal 05/17/23 03:45 Respiratory Depth Normal 05/17/23 03:45 Respiratory Pattern Normal 05/17/23 03:45 Blood Pressure 144/90 H 05/17/23 03:45 Pulse Oximetry 100 05/17/23 03:45 Oxygen Delivery Method Room Air 05/17/23 03:45 Pain Level 9 05/17/23 03:45 PAWSS Have you Been Recently Intoxicated or Drunk Within the Last 30 days?: No Have you Ever Experienced Previous Episodes of Alcohol Withdrawal?: No Have you ever Experienced Withdrawal Seizures?: No Have you ever Experienced Delirium Tremens(DT)s?: No Have you ever undergone Alcohol Rehabilitation Treatment (i.e, inpt ot outpatient treatment programs)?: No Have you ever Experienced Blackouts?: No Have you ever Combined Alcohol with other Downers within the last 90 days?: No Have you ever Combined Alcohol with any other Substance of Abuse during the last 90 days?: No Positive Blood Alcohol level on Presentation? [PCS.BAL]: Unable to Obtain Evidence of Increased Autonomic Activity (i.e. HR>120, tremor, sweating, agitation, nausea)?: Unable to Obtain Result: 0
[2023-05-17 04:09] VITALS: BP 144/90; PULSE 53; RESP 18; O2SAT 98
--- NOTE | 2023-05-17 06:14 | NUR.NOTE ---
pt placed on care management referral list to establish primary care.
== END 2023-05-17 04:11 | disposition home or self-care (01) ==
LOC: ER 04:31
PROVIDERS: Emergency Provider Emergency Medicine
DX: R07.9 Chest pain, unspecified (principal); R00.1 Bradycardia, unspecified; R41.9 Unspecified symptoms and signs involving cognitive functions and awareness; G40.909 Epilepsy, unspecified, not intractable, without status epilepticus
CPT/HCPCS: 93005; 99283; 93010

== ENCOUNTER 2023-06-01 11:07 | Emergency (ER) | payer BC, SELFPAY ==
[2023-06-01 11:46] VITALS: BP 139/92; PULSE 63; RESP 16; TEMP 36.7; O2SAT 100
--- NOTE | 2023-06-01 12:30 | DI.CT_ITS ---
Exam(s) CT ABDOMEN PELVIS W EXAM: CT ABDOMEN PELVIS W CLINICAL HISTORY: bilateral abdominal pain. TECHNIQUE: Imaging Protocol: Axial computed tomography images with coronal and sagittal reformatted images were created and reviewed CONTRAST MATERIAL: Intravenous: Omnipaque-350 100cc Oral: None COMPARISON: No exams were available for comparison FINDINGS: VISUALIZED LUNG BASES: No nodules nor pleural effusions evident. ABDOMEN: There is no ascites. LIVER: There are no focal hepatic lesions evident. No dilated intrahepatic ducts. GALLBLADDER/BILIARY: No obvious gallbladder pathology. CBD is not dilated. PANCREAS: No evidence of pancreatic mass nor dilatation of the pancreatic duct. SPLEEN: Spleen is not enlarged. No obvious intrasplenic lesions. Splenic and portal veins are paten t. ADRENALS: There are no significant adrenal masses. KIDNEYS:No cysts evident. No solid renal masses. No calculi nor hydronephrosis.. ABDOMINAL AORTA: Abdominal aorta is not enlarged. LYMPH NODES:There is no retroperitoneal nor paraaortic adenopathy. ABDOMINAL WALL: No evidence of significant anterior abdominal wall nor inguinal hernia. GI: There is no evidence of bowel obstruction, free air, nor abscess. PELVIS: GI: No evidence of appendicitis.No evidence of sigmoid diverticulitis. LYMPH NODES: There is no intrapelvic nor inguinal adenopathy. REPRODUCTIVE: Age-appropriate URINARY BLADDER: No calculi nor obvious masses evident OSSEOUS: No fractures and no significant osseous lesions. IMPRESSION: 1. No significant acute findings in the abdomen and pelvis. RADIATION DOSE DELIVERED: Total DLP DATA REPOSITORY: All CT scans at this facility are submitted to the National Radiology Data Registry (NRDR) Dose Index Registry (DIR) with the [employer] (ACR). RADIATION OPTIMIZATION: All CT scans at this facility use at least one of these dose optimization te chniques: automated exposure control; mA and/or kV adjustment per patient size (includes targeted exa ms where dose is matched to clinical indication); or iterative reconstruction.
--- NOTE | 2023-06-01 12:43 | W.ED.GENAD ---
Discharge Plan Disposition Patient Disposition: Home Discharge Details Clinical Impression: Diarrhea, Abdominal pain Primary Care Provider: Unknown,Unknown ED Provider: Татьяна Bone Home Meds and New Rx's Prescriptions: No Action lamotrigine [Lamictal] 100 mg tablet 100 mg PO BID diazepam [Diastat] 2.5 mg kit 5 mg [place] Q6H PRN (Reason: epilepsy) Qty: 1 0RF Discharge Instructions Instructions: Acute Diarrhea (ED), Abdominal Pain (ED) Additional Instructions: 1. Bring a stool sample back to the lab to be tested for parasites and pathogens. 2. You will be contacted by home care physical therapist regarding establishing care with a primary care provider. 3. Maintain hydration with electrolyte solution such as Gatorade or Pedialyte and return to the emergency department for any new or worrisome symptoms. Discharge Data Discharge Date/Time-TO BE ENTERED AT DEPARTURE: 06/01/23 16:44 Discharge Physician: Татьяна Bone Medical Decision Making This is a generally healthy 23-year-old male who presents with 2 weeks of diarrhea and the pain in the left lower quadrant which he describes as 9 out of 10 in severity. He is slightly hypertensive but not tachycardic tachypneic or febrile. He denies any sick contacts, unusual foods. He tells me he has not been drinking from [place], which makes Giardia less likely. He has not been on antibiotics which makes C. difficile less likely as well. I doubt he has a foodborne illness because of the length of his symptoms which began 2 weeks ago. He has not had any foreign travel which makes parasitic or anemic COVID infection also less likely. He denies any blood in the stool but it is possible he has ulcerative colitis or Crohn's disease which has never been diagnosed. He could also have irritable bowel syndrome. He does have a distant history of peptic ulcer disease but states this pain is different than what he experienced with his previous episodes. He does not appear significantly dehydrated and his abdominal exam is reassuring. My plan is to obtain blood work including a CBC to check for leukocytosis and left shift. We will check electrolytes and liver function test. We will check his renal function and urinalysis for signs of dehydration. I will order a CT scan of the abdomen and pelvis with IV contrast if he has normal renal function to rule out ulcerative colitis or Crohn's disease. We will attempt to obtain a stool culture and have him follow-up with primary care. He will have to establish care with a new primary care provider. He will likely be discharged home with outpatient follow-up Differential Diagnosis Differential Diagnosis: Ulcerative colitis, Crohn's disease, parasitic infection, IBS Medical Records Medical records reviewed: Yes I reviewed the patient's medical records. Imaging Data Radiologic Study: Imaging: CT Scan (CT abdomen and pelvis with IV contrast.) Radiologist's impression: 1. No significant acute findings in the abdomen and pelvis. Lab Data Lab results reviewed: Yes I reviewed the patient's lab results. Lab results narrative: Normal white count, normal H&H, normal platelet count, no significant left shift, no significant eosinophilia, mild hypokalemia slightly elevated anion gap, normal renal function, mild elevation of bilirubin normal other liver function test, normal lipase normal urinalysis HPI General Mode of arrival: ambulatory. Date/Time Provider Initiated Documentation: 06/01/23 12:43. Limitations to Documentation: no limitations. Information obtained by: patient. HPI Narrative: Time seen was 12:45 PM in the waiting room. Patient is a 23-year-old male with a history of seizure disorder who presents with abdominal pain and diarrhea that began 2 weeks ago. The pain is located in the mid epigastric region and radiates laterally. It is worse on the left than on the right. He does have a history of peptic ulcer disease but states that this pain is different. He denies any vomiting, recent use of antibiotics, blood in the stool or urine. He has noticed a slight increase in frequency in urination but no dysuria. The pain is 9 out of 10 in severity it is aggravated by ambulation and recumbency. He denies any previous similar episodes. He has never had any abdominal surgery. He tried taking felodipine for the pain but it did not help. He denies any fevers or chills. He denies any changes in weight. He does not use daily nonsteroidal anti-inflammatories. He does not drink significant amounts of alcohol. He denies any sick contacts or foreign travel. He denies any recent use of antibiotics or ingesting unusual foods. He denies any sick contacts. He says he is had about 2 episodes of diarrhea a day. He denies any penile discharge, chest pain, dizziness. He does have a tree nut allergy Related Data Home Medications Medication Instructions Recorded Confirmed diazepam 2.5 mg rectal kit 5 mg CA Q6H PRN epilepsy 2 doses 05/04/23 (Diastat) #1 ea lamotrigine 100 mg tablet 100 mg PO BID 05/04/23 05/04/23 (Lamictal) Previous Rx's Medication Instructions Recorded diazepam 2.5 mg rectal kit 5 mg CA Q6H PRN epilepsy 2 doses 05/04/23 (Diastat) #1 ea Allergies Allergy/AdvReac Type Severity Reaction Status Date / Time tree nut Allergy Severe Anaphylaxis Unverified 06/01/23 11:50 General Stated Complaint: Abd Prob LOBO: 3 Review of Systems Narrative: see hpi PFSH All Active Problems Abdominal pain (Acute) Diarrhea (Acute) Chest pain of uncertain etiology (Acute) Bradycardia (Acute) Seizure disorder (Chronic) Social History Smoking/Tobacco Use Status: Never Smoking risk assessment performed?: Yes Alcohol Intake: former Drug use: Socially Substance use type: does not use Housing: apartment Do you feel safe at home: Yes Do you feel safe in your relationship?: Yes Exam Const General: cooperative, healthy appearing, comfortable, no acute distress, well developed, well groomed and well hydrated Nutritional Appearance: average body habitus and well nourished Orientation: alert, awake and oriented x3 HENMT Head: normal to inspection, normocephalic and atraumatic Ears: hearing grossly normal bilaterally and external ears normal General nose exam: external nose normal, nares normal and no nasal discharge Face and sinus: normal facial exam, sinuses nontender and face symmetric Mouth: oral mucosae normal, lip normal, tongue normal, oropharynx normal, moist mucous membranes and other (Normal phonation. The patient is handling secretions.) Throat: posterior oropharynx normal and uvula midline Eyes General: appearance normal, both eyes and all related structures Eyelids: eyelids normal Conjunctivae: conjunctivae normal Sclera: sclerae normal Cornea: corneas normal Pupils: PERRL EOM: EOM intact bilaterally and No nystagmus Neck Neck: normal visual inspection, full ROM, no lymphadenopathy, no meningeal signs, trachea midline and supple Lymphatic: no lymphadenopathy noted Chest Chest: normal inspection of the chest Resp Effort & Inspection: normal respiratory effort, able to speak in complete sentences, no audible wheezes, no nasal flaring, no respiratory distress, no retractions, no stridor, not tachypneic, no tracheal deviation, no use of accessory muscles, No prolonged expiratory phase and other (Normal inspiratory to expiratory ratio.) Auscultation: clear to auscultation bilaterally, no rales, no rhonchi, no wheezes and no rubs Tactile Fremitus: tactile fremitus absent Cardio Jugular venous pressure: no JVD Palpation: normal PMI Rate: regular rate Rhythm: regular rhythm Heart Sounds: S1 normal, S2 normal, no gallops, no murmurs and no rubs GI Inspection: normal to inspection, no abdominal wall ecchymosis, no visible herniation and no visible pulsation Palpation: soft, hepatosplenomegaly present, not firm, no guarding and tender in the LLQ and periumbilically; not at McBurney's point and with no rebound tenderness Auscultation: normal bowel sounds General: No CVA tenderness Back/Spine/Pelvis Back: no CVA tenderness and No back tenderness Cervical Spine: normal cervical lordosis and cervical ROM normal Skin General skin exam: no rashes or lesions noted, turgor normal, no petechiae, no purpura and other (Skin is normal for ethnicity.) Lesions: no lesions Rashes: no rashes Trauma: no lacerations or abrasions Neuro General: patient alert, patient awake, patient oriented x3, moves all extremities, no meningeal signs, no focal motor deficits and CN's II-XI intact bilaterally Cranial Nerves: CN's II-XI intact bilaterally, PERRL, accommodation normal, EOM intact bilaterally, no nystagmus, facial strength normal, tongue midline, hearing normal and no nystagmus Cognition: normal cognition Speech: speech normal Gait: normal gait Motor: muscle tone normal throughout and strength 5/5 throughout Sensory Exam: no sensory deficits noted Extrem General: normal to inspection, full ROM, capillary refill normal, no clubbing, cyanosis or edema and no calf tenderness Psych Appearance: grossly normal Affect: normal affect Attitude: cooperative Thought Process: normal Thought Content: normal Insight: insight good Judgment: judgment good Other: The patient appears to have capacity make medical decisions. Course I have reviewed the patient's lab and radiology findings with him. I have arranged for him to establish care with a new primary care provider. He was unable to give us a stool sample in the department so we will send him home with a lab request and equipment needed to provide an outpatient stool sample. I have advised him to avoid alcohol and nonsteroidal anti-inflammatories and to return here for any new or worrisome symptoms. The patient voiced understanding agreement with the discharge plan. All his questions and concerns were addressed prior to discharge. Vital Signs Vital signs: Vital Signs Temperature 36.7 C 06/01/23 11:46 Pulse 63 06/01/23 11:46 Respiratory Rate 16 06/01/23 11:46 Blood Pressure 139/92 H 06/01/23 11:46 Pulse Oximetry 100 06/01/23 11:46 Temperature 36.7 C 06/01/23 11:46 Temperature Source Tympanic 06/01/23 11:46 Pulse 63 06/01/23 11:46 Respiratory Rate 16 06/01/23 11:46 Blood Pressure 139/92 H 06/01/23 11:46 Pulse Oximetry 100 06/01/23 11:46 Oxygen Delivery Method Room Air 06/01/23 11:46 Oxygen Flow Rate 0 06/01/23 11:46
[2023-06-01 13:49] VITALS: BP 121/79; PULSE 56; RESP 16; O2SAT 100
[2023-06-01 14:00] LABS: Abs Immature Grans 0.02 10^3/uL (0.0-0.06); Absolute Basophil Count 0.04 10^3/uL (0.0-0.2); Absolute Eosinophil Count 0.18 10^3/uL (0.0-0.7); Absolute Lymphocyte Count 2.98 10^3/uL (1.2-3.4); Absolute Monocyte Count 0.63 10^3/uL (0.1-0.8); Absolute Neutrophil Count 4.48 10^3/uL (1.2-6.7); Basophils % 0.5; Eosinophils % 2.2; HCT 45.2 % (40.0-50.0); HGB 15.8 g/dL (13.5-17.5); Immature Grans % 0.2; Lymphocytes % 35.8; MCH 31.4 pg (27.0-33.0); MCV 90 fL (80-95); MPV 9.4 fL (8.0-11.0); Monocytes % 7.6; Neutrophils % 53.7; Platelet Count 277 10^3/uL (130-400); RBC 5.03 10^6/uL (4.36-5.78); RDW-SD 39.4 fL; WBC 8.33 10^3/uL (4.4-10.8)
[2023-06-01 14:14] LABS: Lipase 35 U/L (16-77)
[2023-06-01 14:16] LABS: ALT 26 U/L (16-63); AST 16 U/L (15-37); Albumin 4.5 g/dL (3.4-5.0); Alkaline Phosphatase 61 U/L (46-116); Anion Gap 11.6 mmol/L (3-11); BUN 9 mg/dL (7-18); Bilirubin, Total 2.1 mg/dL (0.2-1.0); CO2 29.4 mmol/L (21.0-32.0); Calcium 9.6 mg/dL (8.5-10.1); Chloride 99 mmol/L (98-107); Estimated GFR 109.13 (mL/min/1.73m2); Glucose 100 mg/dL (74-106); Magnesium 1.9 mg/dL (1.8-2.4); Potassium 3.4 mmol/L (3.5-5.1); Sodium 140 mmol/L (136-145); Total Protein 7.6 g/dL (6.4-8.2)
[2023-06-01] MEDS: Omnipaque 350 MG/ML 100 ML BTL IJ (14:24)
[2023-06-01] MEDS: Normal Saline - Diluent 50 ML VIAL IJ (14:25)
[2023-06-01 15:46] LABS: Bilirubin Negative (Negative); Blood Negative (Negative); Clarity Clear (Clear); Glucose Negative (Negative); Ketones Negative (Negative); Leukocyte Esterase Negative (Negative); Nitrite Negative (Negative); Specific Gravity <= 1.005 (1.005-1.025); Urobilinogen 0.2 mg/dL (Up to 0.2)
--- NOTE | 2023-06-01 16:09 | NUR.NOTE ---
Referral given to recruiter account manager to help pt establish care and to see him for his abd pain and neg CT scan
== END 2023-06-01 16:44 | disposition home or self-care (01) ==
PROVIDERS: Emergency Provider Emergency Medicine Emergency Medical Services
DX: R10.32 Left lower quadrant pain (principal); R19.7 Diarrhea, unspecified; R11.0 Nausea; G40.909 Epilepsy, unspecified, not intractable, without status epilepticus; Z79.899 Other long term (current) drug therapy
CPT/HCPCS: 80053; 82962; 83690; 99285; 74177; 81003; 83735; 85025; 99284; J3490